=== PATIENT | female | born 2000 | race Caucasian/White ===

== ENCOUNTER 2020-10-13 10:56 | Outpatient (CLI) | payer MEDICAID, SELFPAY ==
[2020-10-13 11:15] VITALS: RESP 18
[2020-10-13 11:50] VITALS: BMI 21.9
--- NOTE | 2020-10-13 12:04 | PC.NURSE ---
Patient was placed on the monitor at 1119, patient has printed strip from [id number], due to patient not being in the system. Patient in system and strip stored at 1158.
[2020-10-13 12:15] VITALS: RESP 18
== END 2020-10-13 12:25 | disposition home or self-care (01) ==
LOC: OPOB 11:53 → OBGYN 11:56
PROVIDERS: Visit Provider Family Medicine
DX: O26.899 Other specified pregnancy related conditions, unspecified trimester (principal); Z3A.00 Weeks of gestation of pregnancy not specified; R10.9 Unspecified abdominal pain
CPT/HCPCS: 59025; 99211

== ENCOUNTER 2020-10-22 15:50 | Outpatient (CLI) | payer MEDICAID, SELFPAY ==
[2020-10-22 16:12] VITALS: BP 113/66; PULSE 136; TEMP 36.3
[2020-10-22 16:28] VITALS: BP 98/53; PULSE 122
[2020-10-22 16:29] VITALS: RESP 18
[2020-10-22 16:42] VITALS: BP 102/64; PULSE 112
[2020-10-22 16:48] LABS: Actim Prom Negative
[2020-10-22 16:57] VITALS: BP 100/61; PULSE 125
[2020-10-22 17:00] LABS: Amphetamines Screen Urine Negative (Negative); Barbiturates Screen Urine Negative (Negative); Benzodiazepines Screen Urine Negative (Negative); Cocaine Screen Urine Negative (Negative); Opiate Screen Urine Negative (Negative); PCP Screen Urine Negative (Negative); THC Screen Urine Negative (Negative)
[2020-10-22 17:29] VITALS: BMI 22.4
[2020-10-22 17:42] VITALS: BP 109/69; PULSE 112
== END 2020-10-22 18:25 | disposition home or self-care (01) ==
LOC: OPOB 15:56 → OBGYN 15:57
PROVIDERS: Visit Provider Obstetrics & Gynecology
DX: O26.899 Other specified pregnancy related conditions, unspecified trimester (principal); Z3A.00 Weeks of gestation of pregnancy not specified; N89.8 Other specified noninflammatory disorders of vagina
CPT/HCPCS: 59025; 80306; 83986; 84112; 99211

== ENCOUNTER 2020-10-27 13:35 | Outpatient (CLI) | payer MEDICAID, SELFPAY ==
[2020-10-27] VITALS (8 sets, daily range): BP systolic 102–123; BP diastolic 60–71; PULSE 101–116; RESP 17; TEMP 36.1; BMI 22.4
--- NOTE | 2020-10-27 14:40 | P.PCN_ITS ---
Procedure/Consent Procedure Narrative: NONSTRESS TEST: Place of test: [facility] [place]-L&D Indication: 19-year-old 2 para 1-0-0-1 at 38 weeks gestation, abdominal pain Date and time of test: 10/27/2020, 2 PM Baseline: 150 Variability: Moderate Accelerations: Present Decelerations: None Tocometry: Irritability-occasional contractions INTERPRETATION: NST reactive, continue kick counts
== END 2020-10-27 15:12 | disposition home or self-care (01) ==
LOC: OPOB 13:46 → OBGYN 13:50
PROVIDERS: Visit Provider Obstetrics & Gynecology
DX: O26.899 Other specified pregnancy related conditions, unspecified trimester (principal); Z3A.38 38 weeks gestation of pregnancy; R10.9 Unspecified abdominal pain
CPT/HCPCS: 59025; 99211

== ENCOUNTER 2020-10-30 12:17 | Outpatient (CLI) | payer MEDICAID, SELFPAY ==
[2020-10-30] VITALS (16 sets, daily range): BP systolic 117–155; BP diastolic 61–100; PULSE 103–127; RESP 16; TEMP 36.7; BMI 22.4
--- NOTE | 2020-10-30 14:11 | US_ITS ---
WS: [id number] BIOPHYSICAL PROFILE AMNIOTIC FLUID HISTORY: presentation COMPARISON: None available. Cardiac activity: 138 bpm. Cervix: closed. Placenta: Posterior without previa. Placenta grade: 3 Parameters are as follows: Breathin Movement: 2 Tone: 2 Fluid volume: 2 Amniotic fluid index: 10.9 cm which is between the fifth and 50th percentiles. Largest vertical pocke t 3.7 cm. US/US OB lmt w/ BPP wo NST IMPRESSION: 1. Biophysical profile score: 8/8. 2. Low normal amniotic fluid index. 3. Vertex presentation. 4. Posterior placenta, grade 3.
== END 2020-10-30 16:14 | disposition home or self-care (01) ==
LOC: OPOB 12:25 → OBGYN 16:03
PROVIDERS: Visit Provider Family Medicine
DX: O26.899 Other specified pregnancy related conditions, unspecified trimester (principal); Z3A.00 Weeks of gestation of pregnancy not specified; R10.9 Unspecified abdominal pain
CPT/HCPCS: 59025; 76815; 76819; 99211

== ENCOUNTER 2020-11-05 12:45 | Inpatient (IN) | payer MEDICAID, SELFPAY ==
[2020-10-30 13:41] VITALS: RESP 16; TEMP 36.7
[2020-11-05] VITALS (35 sets, daily range): BP systolic 105–129; BP diastolic 55–83; PULSE 88–133; RESP 16–18; TEMP 36.5–36.8; O2SAT 93–100; BMI 22.8
[2020-11-05 14:18] LABS: Basophils # 0.1 10^3/uL (0.0-0.1); Basophils % 0.5 %; Eosinophils # 0.1 10^3/uL (0.0-0.8); Eosinophils % 0.4 %; Hematocrit 29.6 % (37.0-47.0); Lymphocytes # 1.5 10^3/uL (0.8-4.8); Lymphocytes % 9.9 %; Mean Corpuscular HGB Conc 30.4 g/dL (30.0-36.0); Mean Corpuscular Hemoglobin 23.9 pg (28.0-34.0); Mean Corpuscular Volume 78.5 fL (81-99); Mean Platelet Volume 11.3 fL (7.4-10.4); Monocytes # 1.1 10^3/uL (0.2-0.9); Monocytes % 7.1 %; Neutrophils % 80.9 %; Nucleated Red Blood Cells % 0.2 %; Platelet Count 340 10^3/cmm (130-400); Red Blood Count 3.77 10^6/uL (4.1-5.3); Red Cell Distribution Width 17.4 % (12.1-15.1); White Blood Count 15.4 10^3/uL (4.0-10.0)
[2020-11-05] MEDS: dextrose 5%-lactated ringers 1,000 ML 125 ML IV (14:30)
[2020-11-05] MEDS: oxytocin 30 UNIT/500 ML BAG IV (14:31)
[2020-11-05] MEDS: lactated ringers 1,000 ML 999 ML IV ×2 (15:20→16:11)
--- NOTE | 2020-11-05 16:18 | ANES.PREANE2 ---
Pre-Anesthetic Assessment Pre-Anesthetic Assessment: Height/Weight: Height 1.7 m Weight 66.224 kg Temp Pulse Resp BP Pulse Ox 97.7 F 114 H 16 105/67 100 11/05/20 12:45 11/05/20 16:14 11/05/20 12:45 11/05/20 16:10 11/05/20 16:14 Was Beta Sherry taken within 24 hours: N/A Was Clonidine taken within 24 hours: N/A Social: Social History: No alcohol and No tobacco Exam: Pre-Anes Outpt Exam: alert and oriented x 3 History/ROS: No significant complaints Pulmonary: Pulmonary: None reported CV/HEM: CV/HEM: None reported : : None reported Hepatic: Hepatic: None reported GI: GI: None reported Metabolic: Metabolic: None reported Musc/skel: Musc/skel: None reported Neuropsych: Neuropsych: None reported Anesthetic Plan: ASA status: 1 Anesthesia: Regional (specify below) (Labor Epidural; risks and benefits disc including failure and permanent injuries. ) Meds/Allergies Current Medications: Current Medications Generic Name Dose Route Start Last Admin Trade Name Freq PRN Reason Stop Dose Admin Dextrose/Lactated Ringer's 1,000 mls @ 125 m ls/hr 11/05/20 13:15 11/05/20 14:30 Dextrose 5%-Lact ated Ringers IV 125 mls/hr .Q8H BERNA Administration Oxytocin 30 unit in 500 ml s @ 1 mls/hr 11/05/20 14:15 11/05/20 14:31 Pitocin IV 1 milliunit/min .Q24H BERNA 1 mls/hr Administration Protocol 1 MILLIUNIT/MIN Ropivacaine 200 mg in 100 mls @ 13 mls/hr 11/05/20 14:45 11/05/20 16:08 Naropin Premix EPIDURAL 13 mls/hr .Q7H42M BERNA Administration Lactated Ringer's 1,000 mls @ 999 m ls/hr 11/05/20 14:45 11/05/20 16:11 Lactated Ringers IV 999 mls/hr .Q1H1M PRN Administration See label comment s PFSH Anesthesia Female Reproductive History: : 3 Data Anesthesia CBC & Chem 7: 11/05/20 13:50 Other Labs: Laboratory Results - last 48 hr 11/05/20 13:50 WBC 15.4 H RBC 3.77 L Hgb 9.0 L Hct 29.6 L MCV 78.5 L MCH 23.9 L MCHC 30.4 RDW 17.4 H Plt Count 340 MPV 11.3 H Neut % (Auto) 80.9 Lymph % (Auto) 9.9 [place]isco[place] % (Auto) 7.1 Eos % (Auto) 0.4 Baso % (Auto) 0.5 Neut # (Auto) 12.50 H Lymph # (Auto) 1.5 [place] # (Auto) 1.1 H Eos # (Auto) 0.1 Baso # (Auto) 0.1 Nucleated RBC % (auto) 0.2 Nucleated RBCs # 0.0 Cardiac Studies: No Data to Display
--- NOTE | 2020-11-05 16:20 | ANES.PROC ---
Anesthesia Procedures Procedure/Date: 11/05/20 Epidural: Consents Signed: Procedure Consent Consent: requested by attending/covering physician, risks and benefits reviewed and patient agrees to proceed Lumbar Level: L4-L5 Epidural position: sitting Epidural procedure: sterile prep of area, 1% lidocaine to numb the area, neg for paresthesia, test dose given, 1.5% xylocaine 1:200k epi, no systemic response, sterile dressing applied and L.U.D. no apparent complications
--- NOTE | 2020-11-05 18:03 | P.PCNOB_ITS ---
Delivery Note: Date of delivery: November 05, 2020 Pre-delivery diagnoses: Term iup at 39 weeks Procedure: Op report anesthesia: Epidural Delivering Physician: Geno Estimated blood loss (mL): 50 Pre-Delivery Course: The patient is a 20 year old who was admitted at 39 weeks for induction at term. Her has been uncomplicated. Delivery: The patient had complete cervical dilation and began to push. The head delivered in the INGRID position over an intact perineum under epidural anesthesia. The nose and mouth were bulb suctioned. The shoulders and body delivered atraumatically. The baby was placed onto the mother's abdomen. The cord was clamped and cut. Cord blood was obtained. The placenta delivered spontaneously. It was inspected and found to be intact. Inspection of the perineum revealed no repair was required. There was a small, midline periurethral tear. Estimated blood loss 50. Apgars on baby were 8 at 1 minute and 8 at 5 minutes. Weight of baby is 7 pounds 1 ounce. Mother and baby were stable postdelivery. Coding Level of Care Code Acute Hotel Valet Attendant for Debbie Head
[2020-11-05] MEDS: lanolin oint 7 gm 1 APPLIC TOPICAL (21:07)
[2020-11-05] MEDS: ibuprofen 800 mg tablet PO (21:07)
[2020-11-05] MEDS: benzocaine-menthol 78 gm Canister 1 SPRAY TOPICAL (21:08)
--- NOTE | 2020-11-05 21:15 | PC.NURSE ---
RN assists patient via wheelchair to nursery at this time
--- NOTE | 2020-11-05 21:45 | PC.NURSE ---
Patient back to room and in bed.
[2020-11-06 01:46] VITALS: BP 106/57; PULSE 91; TEMP 36.4
--- NOTE | 2020-11-06 03:08 | PC.NURSE ---
Patient in nursery.
[2020-11-06 03:22] VITALS: BP 130/77; PULSE 110
[2020-11-06 06:34] LABS: Hematocrit 26.4 % (37.0-47.0); Hemoglobin 8.1 g/dL (11.5-15.3); Mean Corpuscular HGB Conc 30.7 g/dL (30.0-36.0); Mean Corpuscular Hemoglobin 23.9 pg (28.0-34.0); Mean Corpuscular Volume 77.9 fL (81-99); Mean Platelet Volume 10.2 fL (7.4-10.4); Platelet Count 285 10^3/cmm (130-400); Red Blood Count 3.39 10^6/uL (4.1-5.3); Red Cell Distribution Width 17.5 % (12.1-15.1); White Blood Count 17.8 10^3/uL (4.0-10.0)
[2020-11-06] MEDS: ibuprofen 800 mg tablet PO ×2 (10:25→21:51)
[2020-11-06] MEDS: docusate sodium 100 mg Capsule PO (10:25)
[2020-11-06] MEDS: prenatal vitamin Capsule 1 CAP PO (10:25)
[2020-11-06 10:34] VITALS: BP 111/74; PULSE 93; TEMP 36.4
--- NOTE | 2020-11-06 12:03 | P.PN_ITS ---
Subjective Subjective: Interval history: The patient is PP day #1. She is doing well. No complaints this morning. She is tolerating a regular diet, ambulating and pain is well controlled. lochia is normal Vitals/I&O/Wt Last Vital Signs Temp 97.5 F L 11/06/20 10:34 Pulse 93 11/06/20 10:34 Resp 18 11/05/20 18:22 BP 111/74 11/06/20 10:34 Pulse Ox 100 11/05/20 16:19 11/05/20 11/06/20 11/06/20 22:59 06:59 14:59 Intake Total 2588.500 / 2588.500 Output Total 1400 / 1400 400 / 1800 Balance 1188.500 / 1188.500 -400 / 788.500 Weight last 48 hrs Weight 146 lb Weight 146 lb Physical Exam Const: COMMON NORMALS: no acute distress, average body habitus, patient oriented x3, no limitations, healthy appearing, alert and well nourished GENERAL APPEARANCE: cooperative, comfortable, well kempt and well developed ORIENTATION/CONSCIOUSNESS: Yes awake, Yes oriented to person, Yes oriented to place and Yes oriented to time Resp: COMMON NORMALS: normal respiratory effort and No use of accessory muscles EFFORT & INSPECTION: Yes able to speak in complete sentences GI: COMMON NORMALS: Soft to palpation and non-tender PALPATION: Yes Soft to palpation Extremity: COMMON NORMALS: no clubbing, cyanosis or edema Neuro: COMMON NORMALS: patient oriented x3 SENSORIUM/ORIENTATION: Yes alert, Yes oriented to person, Yes oriented to place and Yes oriented to time Psych: APPEARANCE: Yes well kempt Data : 11/06/20 06:30 Attestations Medical Necessity Statement*: The patient is Coding Level of Care Code Acute Client Technical Professional for Debbie Head
[2020-11-06 19:30] VITALS: RESP 15
[2020-11-06 22:00] VITALS: BP 117/77; PULSE 88; TEMP 36.6
[2020-11-07] VITALS (7 sets, daily range): BP systolic 100–111; BP diastolic 57–82; PULSE 66–99; RESP 17; TEMP 36.2
[2020-11-07] MEDS: ibuprofen 800 mg tablet PO (08:34)
[2020-11-07] MEDS: prenatal vitamin Capsule 1 CAP PO (08:34)
[2020-11-07] MEDS: docusate sodium 100 mg Capsule PO (08:34)
--- NOTE | 2020-11-07 12:10 | P.DS_ITS ---
Discharge Providers ENTERPRISE SYSTEMS ENGINEER Date of Admission: 11/05/20 12:45 Date of Discharge: 11/07/20 Attending Provider at Admission: Devin Sood MD Attending Provider at Discharge: Alfredo Tmi MD Primary ENTERPRISE SYSTEMS ENGINEER: Dr. Anna Sparks Diagnoses at Discharge Discharge Diagnosis (1) Term delivered: Status: Acute (2) Anemia during , delivered, current hospitalization: Status: Acute Reason for Visit Reason for Visit: INDUCTION Hospital Course Hospital Course Patient is a 20-year-old female 3, para 2-0-0-2 with an LMP of 02/14/2020 and an EDC of 11/20/2020 based on LMP and consistent with a 15-week ultrasound, which placed her at 39-0/7 weeks at the time of admission on 11/05/2020. care had been provided by Dr. Anna Sparks at [facility]. care had been complicated by anemia in . Patient presented to L&D on 11/05/2020 at 12:45 for induction of labor for term . She was admitted by Dr. Sood. She was 60% effaced and 4 cm dilated. She was started on Pitocin for induction of labor. She had spontaneous rupture membranes at 14:33 and was still 70% effaced and 4 cm dilated. She was leonardo regularly at the time. She continued to contract and made rapid change thereafterwards and was found to be completely dilated by 17:23. She started pushing at 17:[address] Lora at 17:34 as a spontaneous vaginal delivery of a left occiput anterior female infant over an intact perineum under epidural anesthesia. The baby weighed 7 lbs 1 oz (3200 g) with a length of 19-1/2 inches and Apgars of 8 at 1 minute and 8 at 5 minutes. Day 1 Patient was reported doing well. She was tolerating a regular diet. She was ambulating well. Her pain was well controlled. Her bleeding had slowed. She was afebrile and vital signs were stable. Activities were increased. Blood count had dropped, but was not unexpected compared to initial blood count. She was down to 8.1 hemoglobin and was asymptomatic. Patient had been on iron prior to admission. Day 2 Patient denies complaints at this time. She is requesting to go home. She is tolerating a regular diet without nausea or vomiting. She is ambulating without lightheadedness or dizziness. She denied shortness of breath or chest pains. She reported her pain was well controlled. She denied problems with urination. She reports that her bleeding had slowed. She reports both breast and bottlefeeding at this time. Physical exam: See below Plan Patient is being discharged to home. She is to follow-up with Dr. Sparks for her exam. She was instructed to continue the vitamins and iron and is to use [id number] Tylenol and/or ibuprofen as needed for pain. Information Peripartum Data: Delivery Method: Vaginal Laceration description: Periurethral - 1st Degree Episiotomy description: None complications: none Additional Peripartum Information: Chronic iron deficiency anemia complicating . [place]: 1: Gender: Female Disposition of : home Additional Information: Viable female weighing 7 pounds 1 ounce (3200 g) with a length of 19-1/2 inches and Apgars of 8 at 1 minute and 8 at 5 minutes. Physical Exam Const: COMMON NORMALS: no acute distress, average body habitus, alert and well nourished GENERAL APPEARANCE: well developed ORIENTATION/CONSCIOUSNESS: Yes oriented to person, Yes oriented to place and Yes oriented to time Resp: COMMON NORMALS: normal respiratory effort and clear to auscultation bilaterally AUSCULTATION: clear to auscultation bilaterally Cardio: COMMON NORMALS: regular rate, regular rhythm, No gallops present (Cardio) and No rub (Cardio) RATE: regular rate RHYTHM: regular rhythm GI: COMMON NORMALS: Soft to palpation, non-tender, No hepatosplenomegaly present and no masses (Except for nontender uterus) AUSCULTATION: Yes normoactive bowel sounds PALPATION: Yes Soft to palpation, Yes No hepatosplenomegaly present and No Hernia present : EXTERNAL FEMALE EXAM: No Hernia present Extremity: COMMON NORMALS: no calf tenderness NARRATIVE EXTREMITY EXAM: Trace lower extremity edema bilaterally Neuro: SENSORIUM/ORIENTATION: Yes alert, Yes oriented to person, Yes oriented to place and Yes oriented to time Psych: COMMON NORMALS: normal affect MOOD & AFFECT: Yes euthymic mood Discharge Data Data Completed and Pendin11/05/2020 at 13: 50 CBC: WBC 15.4, hemoglobin 9.0, hematocrit 29.6, MCV 78.5, platelet 340,000 11/06/2020 at 6: 30 CBC: WBC 17.8, hemoglobin 8.1, hematocrit 26.4, MCV 77.9, platelet 285,000 Vitals: Last Vital Signs Temp 97.2 F L 11/07/20 09:38 Pulse 86 11/07/20 09:39 Resp 15 11/06/20 19:30 BP 100/67 11/07/20 09:39 Pulse Ox 100 11/05/20 16:19 Discharge Plan Discharge Patient Disposition: Home Condition: Stable Prescriptions: Continued Complete 1 cap PO DAILY RF: 0 iron 1 tab PO DAILY RF: 0 Discharge Orders: Discharge Order (Routine); Ordered 11/07/20 Ordered By: Alfredo Tim Referrals: Anna Sparks DO [Staff Physician] - 6 Weeks (Please call Dr. Sparks's office to schedule an appt. in 6 weeks for your check up.) Discharge Diet: Regular Discharge Activity: Limit activity as instructed Patient Instructions: Depression (GEN), Expression, Collection and Storage of Breastmilk (DC), How to Hold and Breastfeed Your Baby (DC), Breast Care for the Breast Feeding Mother (DC), Pre-eclampsia and Eclampsia (DC), OB Discharge Report, OB Food/Drug Interaction Guide, Opioid Safety, OB Proud Parent Packet, OB Vaginal Deliveries - [facility] Activity Restrictions/Additional Instructions: May use [id number] ibuprofen and/or acetaminophen as needed for pain. Discharge Attestations ENTERPRISE SYSTEMS ENGINEER Time Spent in Discharge Care*: less than 30 min Status at Discharge: Cognitive status at discharge: cognitively intact , Behavioral status at discharge: cooperative , Functional status at discharge: independent ambulation Overall status at discharge: patient is back to baseline Coding Level of Care Code Acute Railroad Dispatcher for Chg Fwd Diagnoses Term delivered O80 Anemia during , delivered, current hospitalization O99.02
== END 2020-11-07 12:55 | disposition home or self-care (01) | DRG 807 ==
PROVIDERS: Obstetrics & Gynecology; Admitting Provider Obstetrics & Gynecology; Visit Provider Obstetrics & Gynecology
DX: O80 Encounter for full-term uncomplicated delivery (principal); Z37.0 Single live birth; Z3A.39 39 weeks gestation of pregnancy
CPT/HCPCS: 36415; 51702; 59025; 59409; 85025; 85027; 98960; 99211; J2795

== ENCOUNTER → 2021-08-12 14:47 | Outpatient (BNVA) | payer MEDICAID, SELFPAY | PROVIDERS: PCP Nurse Practitioner Family; Visit Provider Obstetrics & Gynecology | DX: O99.891 Other specified diseases and conditions complicating pregnancy (principal); N89.8 Other specified noninflammatory disorders of vagina; Z3A.00 Weeks of gestation of pregnancy not specified | CPT/HCPCS: 80307; 81000; 84443; 85025; 86592; 86762; 86803; 86850; 86900; 87086; 87340; 87481; 87491; 87512; 87591; 87661; 87798; 87799; 87806; 88175 ==

== ENCOUNTER → 2021-09-13 15:10 | Outpatient (BNVA) | payer MEDICAID, SELFPAY | PROVIDERS: PCP Nurse Practitioner Family; Visit Provider Obstetrics & Gynecology | DX: O09.899 Supervision of other high risk pregnancies, unspecified trimester (principal); Z3A.00 Weeks of gestation of pregnancy not specified; Z87.59 Personal history of other complications of pregnancy, childbirth and the puerperium | CPT/HCPCS: 81000 ==

== ENCOUNTER → 2021-10-07 14:44 | Outpatient (BNVA) | payer MEDICAID, SELFPAY | PROVIDERS: PCP Nurse Practitioner Family; Visit Provider Obstetrics & Gynecology | DX: O09.899 Supervision of other high risk pregnancies, unspecified trimester (principal); Z3A.00 Weeks of gestation of pregnancy not specified; Z87.59 Personal history of other complications of pregnancy, childbirth and the puerperium | CPT/HCPCS: 81000; 87086 ==

== ENCOUNTER → 2021-11-08 12:07 | Outpatient (BNVA) | payer MEDICAID, SELFPAY | PROVIDERS: PCP Nurse Practitioner Family; Visit Provider Obstetrics & Gynecology | DX: O09.899 Supervision of other high risk pregnancies, unspecified trimester (principal); Z3A.00 Weeks of gestation of pregnancy not specified | CPT/HCPCS: 81000; 82950; 84443; 85025 ==

== ENCOUNTER → 2021-11-16 14:49 | Outpatient (BNVA) | payer MEDICAID, SELFPAY | PROVIDERS: PCP Nurse Practitioner Family; Visit Provider Internal Medicine | DX: O99.013 Anemia complicating pregnancy, third trimester (principal); D64.9 Anemia, unspecified; Z3A.00 Weeks of gestation of pregnancy not specified | CPT/HCPCS: 82607; 82746; 83550; 84443; 85045 ==

== ENCOUNTER → 2021-11-18 08:27 | Outpatient (BNVA) | payer MEDICAID, SELFPAY | PROVIDERS: PCP Nurse Practitioner Family; Visit Provider Obstetrics & Gynecology | DX: O09.899 Supervision of other high risk pregnancies, unspecified trimester (principal); Z3A.00 Weeks of gestation of pregnancy not specified | CPT/HCPCS: 81000; 82951; 82952 ==

== ENCOUNTER → 2021-11-30 10:50 | Day surgery (SDC) | payer MEDICAID, SELFPAY ==
[2021-11-30] MEDS: iron sucrose 200 MG in sodium chloride 0.9% (100 ml) 100 ML 220 MG IV (11:17)
[2021-11-30 11:30] VITALS: BP 108/61; PULSE 105; RESP 18; TEMP 36.4; O2SAT 100
== END ==
PROVIDERS: PCP Nurse Practitioner Family; Visit Provider Internal Medicine
DX: O99.013 Anemia complicating pregnancy, third trimester (principal); Z3A.00 Weeks of gestation of pregnancy not specified
CPT/HCPCS: 96365; J1756

== ENCOUNTER → 2021-12-02 11:32 | Outpatient (BNVA) | payer MEDICAID, SELFPAY | PROVIDERS: PCP Nurse Practitioner Family; Visit Provider Obstetrics & Gynecology | DX: Z34.90 Encounter for supervision of normal pregnancy, unspecified, unspecified trimester (principal) | CPT/HCPCS: 81000 ==

== ENCOUNTER → 2021-12-07 11:42 | Day surgery (SDC) | payer MEDICAID, SELFPAY ==
[2021-12-07 11:51] VITALS: BP 115/62; PULSE 94; RESP 18; TEMP 36.8; O2SAT 100
[2021-12-07] MEDS: iron sucrose 200 MG in sodium chloride 0.9% (100 ml) 100 ML 220 MG IV (11:56)
== END ==
PROVIDERS: PCP Nurse Practitioner Family; Visit Provider Internal Medicine
DX: O99.013 Anemia complicating pregnancy, third trimester (principal); Z3A.00 Weeks of gestation of pregnancy not specified
CPT/HCPCS: 96365; J1756

== ENCOUNTER → 2021-12-14 11:49 | Day surgery (SDC) | payer MEDICAID, SELFPAY ==
[2021-12-14] MEDS: iron sucrose 200 MG in sodium chloride 0.9% (100 ml) 100 ML 220 MG IV (12:07)
[2021-12-14 12:09] VITALS: BP 106/66; PULSE 109; RESP 16; TEMP 36.3; O2SAT 100; BMI 20.8
== END ==
PROVIDERS: PCP Nurse Practitioner Family; Visit Provider Internal Medicine
DX: O99.013 Anemia complicating pregnancy, third trimester (principal); Z3A.00 Weeks of gestation of pregnancy not specified
CPT/HCPCS: 81000; 96365; J1756

== ENCOUNTER 2021-12-21 13:15 | Outpatient (CLI) | payer MEDICAID, SELFPAY ==
[2021-12-21 13:15] VITALS: BMI 21.1
[2021-12-21 13:34] VITALS: BP 114/61; PULSE 100
[2021-12-21 13:35] VITALS: TEMP 36.1
[2021-12-21 13:54] VITALS: BP 108/67; PULSE 97
[2021-12-21 14:15] VITALS: BP 108/67; PULSE 97; RESP 18; TEMP 36.1
== END 2021-12-21 14:05 | disposition home or self-care (01) ==
LOC: OPOB 13:18 → OBGYN 13:20
PROVIDERS: PCP Nurse Practitioner Family; Visit Provider Obstetrics & Gynecology
DX: O21.9 Vomiting of pregnancy, unspecified (principal); Z3A.00 Weeks of gestation of pregnancy not specified; R10.9 Unspecified abdominal pain; M54.9 Dorsalgia, unspecified; N89.8 Other specified noninflammatory disorders of vagina
CPT/HCPCS: 59025; 99211

== ENCOUNTER 2021-12-26 15:00 | Outpatient (CLI) | payer MEDICAID, SELFPAY ==
[2021-12-26] VITALS (7 sets, daily range): BP systolic 107–117; BP diastolic 58–67; PULSE 95–109; TEMP 36.2; BMI 21.2
[2021-12-26 15:52] LABS: Actim Prom Negative
[2021-12-26 17:19] LABS: Urine Appearance SL Hazy (CLEAR); Urine Color Yellow (Yellow); pH Urine 7 (5-7)
[2021-12-26 17:20] LABS: Bilirubin Urine Neg (Negative); Blood Urine Neg (Negative); Glucose Urine UA Norm (Normal); Ketones Urine Negative (Negative); Leukocyte Esterase Urine 2+ (Negative); Nitrate Urine Negative (Negative); Protein Urine Neg (Negative); Urobilinogen Urine 4 mg/dL (Negative)
[2021-12-26 17:22] LABS: Add Urine Culture? No; Amorphous Sediment Urine 1+ /hpf; Bacteria Urine 1+ /hpf
== END 2021-12-26 16:58 | disposition home or self-care (01) ==
LOC: OPOB 15:01 → OBGYN 15:01
PROVIDERS: PCP Nurse Practitioner Family; Visit Provider Obstetrics & Gynecology
DX: O26.899 Other specified pregnancy related conditions, unspecified trimester (principal); Z3A.00 Weeks of gestation of pregnancy not specified; R10.9 Unspecified abdominal pain; N89.8 Other specified noninflammatory disorders of vagina
CPT/HCPCS: 59025; 81001; 84112; 99211

== ENCOUNTER → 2021-12-28 12:11 | Day surgery (SDC) | payer MEDICAID, SELFPAY ==
[2021-12-28] MEDS: iron sucrose 200 MG in sodium chloride 0.9% (100 ml) 100 ML 220 MG IV (12:25)
[2021-12-28 12:30] VITALS: BP 103/67; PULSE 100; RESP 18; TEMP 36.4; O2SAT 99
== END ==
PROVIDERS: PCP Nurse Practitioner Family; Visit Provider Internal Medicine
DX: O99.013 Anemia complicating pregnancy, third trimester (principal); Z3A.00 Weeks of gestation of pregnancy not specified
CPT/HCPCS: 96365; J1756

== ENCOUNTER → 2021-12-29 13:01 | Outpatient (BNVA) | payer MEDICAID, SELFPAY | PROVIDERS: PCP Nurse Practitioner Family; Visit Provider Obstetrics & Gynecology | DX: O09.899 Supervision of other high risk pregnancies, unspecified trimester (principal); Z3A.00 Weeks of gestation of pregnancy not specified | CPT/HCPCS: 81000; 87081 ==

== ENCOUNTER → 2022-01-04 11:46 | Day surgery (SDC) | payer MEDICAID, SELFPAY ==
[2022-01-04] MEDS: iron sucrose 200 MG in sodium chloride 0.9% (100 ml) 100 ML 220 MG IV (11:54)
[2022-01-04 11:56] VITALS: BP 102/72; PULSE 116; RESP 18; TEMP 36.3; O2SAT 100
== END ==
PROVIDERS: PCP Nurse Practitioner Family; Visit Provider Internal Medicine
DX: O99.013 Anemia complicating pregnancy, third trimester (principal); Z3A.00 Weeks of gestation of pregnancy not specified
CPT/HCPCS: 96365; J1756

== ENCOUNTER → 2022-01-05 14:46 | Outpatient (BNVA) | payer MEDICAID, SELFPAY | PROVIDERS: PCP Nurse Practitioner Family; Visit Provider Obstetrics & Gynecology | DX: O09.899 Supervision of other high risk pregnancies, unspecified trimester (principal); Z3A.00 Weeks of gestation of pregnancy not specified | CPT/HCPCS: 81000 ==

== ENCOUNTER 2022-01-08 15:15 | Outpatient (CLI) | payer MEDICAID, SELFPAY ==
[2022-01-08] VITALS (8 sets, daily range): BP systolic 117–130; BP diastolic 74–75; PULSE 96–125; RESP 16; TEMP 35.9–36.1; BMI 21.7
[2022-01-08 16:30] LABS: Urine Appearance Clear (CLEAR); Urine Color Yellow (Yellow)
[2022-01-08 16:31] LABS: Add Urine Culture? No; Bacteria Urine TRACE /hpf; Bilirubin Urine Neg (Negative); Blood Urine Neg (Negative); Glucose Urine UA Norm (Normal); Ketones Urine Negative (Negative); Leukocyte Esterase Urine Negative (Negative); Nitrate Urine Negative (Negative); Protein Urine Neg (Negative); Squamous Epithelial Cell Urine RARE /hpf (0-5); Urobilinogen Urine Norm (Negative); WBC Urine 0-4 /hpf (0-5); pH Urine 7 (5-7)
== END 2022-01-08 17:21 | disposition home or self-care (01) ==
LOC: OPOB 15:26 → OBGYN 15:27
PROVIDERS: PCP Nurse Practitioner Family; Visit Provider Obstetrics & Gynecology
DX: O26.899 Other specified pregnancy related conditions, unspecified trimester (principal); Z3A.00 Weeks of gestation of pregnancy not specified; R10.9 Unspecified abdominal pain
CPT/HCPCS: 59025; 81001; 99211

== ENCOUNTER 2022-01-13 19:00 | Inpatient (IN) | payer MEDICAID, SELFPAY ==
[2022-01-13] VITALS (85 sets, daily range): BP systolic 87–127; BP diastolic 50–90; PULSE 90–148; RESP 16–17; TEMP 35.8; O2SAT 98–100; BMI 21.9
[2022-01-13 18:31] LABS: Actim Prom Negative
--- NOTE | 2022-01-13 19:34 | W.PM.OPSUD ---
Surgery/Procedure H&P Update DATE OF PROCEDURE: January 13, 2022 DATE H&P PERFORMED: 01/05/22 H&P UPDATE INFORMATION: I have reviewed H&P completed within last 30 days, I have examined patient prior to procedure and Changes to prior documentation as noted here CHANGES TO PREVIOUS DOCUMENTATION: The patient presents for painful contractions at 38 4/7 weeks. Cervix 6/80/-2. She will be admitted for labor
--- NOTE | 2022-01-13 19:40 | W.PM.OPSUD ---
Surgery/Procedure H&P Update DATE OF PROCEDURE: January 13, 2022 DATE H&P PERFORMED: 01/05/22 Related Problem List Diagnoses (1) Anemia during in third trimester: (2) History of premature rupture of membranes (PPROM): (3) Supervision of other high-risk :
[2022-01-13 19:57] LABS: Basophils # 0.1 10^3/uL (0.0-0.1); Basophils % 0.7 %; Eosinophils # 0.1 10^3/uL (0.0-0.8); Eosinophils % 0.7 %; Hematocrit 36.7 % (37.0-47.0); Hemoglobin 11.5 g/dL (11.5-15.3); Lymphocytes # 2.1 10^3/uL (0.8-4.8); Lymphocytes % 18.2 %; Mean Corpuscular HGB Conc 31.3 g/dL (30.0-36.0); Mean Corpuscular Hemoglobin 26.5 pg (28.0-34.0); Mean Corpuscular Volume 84.6 fl (81-99); Mean Platelet Volume 10.5 fL (7.4-10.4); Monocytes # 0.7 10^3/uL (0.2-0.9); Monocytes % 5.8 %; Neutrophils # 8.46 10^3/uL (1.8-7.7); Neutrophils % 72.8 %; Nucleated Red Blood Cells % 0 %; Platelet Count 317 10^3/cmm (130-400); Red Blood Count 4.34 10^6/uL (4.1-5.3); Red Cell Distribution Width 25.9 % (12.1-15.1); White Blood Count 11.6 10^3/uL (4.0-10.0)
--- NOTE | 2022-01-13 21:08 | P.ANESASSM_ITS ---
Pre-Anesthetic Assessment Height/Weight: Height 1.7 m Weight 63.503 kg Temp Pulse Resp BP 96.4 F L 115 H 17 117/87 01/13/22 14:34 01/13/22 21:04 01/13/22 14:59 01/13/22 21:04 Preop Diagnosis: labor epidural Was Beta Sherry taken within 24 hours: N/A Was Clonidine taken within 24 hours: N/A Last Intake: 17:00 Social No alcohol and No tobacco Exam alert, oriented x 3, clear to auscultation bilaterally and regular rate & rhythm Airway Submandibular: within normal limits Cervical ROM: within normal limits Mallampati: Class I Dentition: full Pulmonary None reported CV/HEM None reported None reported Hepatic None reported GI Gastroesophageal Reflux Disease (with ) Metabolic None reported Musc/skel None reported Neuropsych None reported Anesthetic Plan ASA status: 2 Anesthesia: Regional (specify below) (epidural) Medications/Allergies Home Medications Medication Instructions Recorded Confirmed Last Taken Type ondansetron HCl 4 mg tablet 4 mg PO Q6H #30 tab 07/19/21 01/08/22 12/27/21 Rx (Zofran) vitamin B complex-vitamin C-folic 1 tab PO DAILY 09/13/21 01/08/22 12/27/21 History acid 5 mg tablet Allergies Allergy/AdvReac Type Severity Reaction Status Date / Time coconut Allergy ALGY-Swell Verified 01/05/22 14:37 Lip/Tongue/Throat Latex, Natural Rubber Allergy ALGY-Rash Verified 01/05/22 14:37 [facility] Anesthesia Medical History Anemia Surgical History No pertinent past surgical history Family History Mother Hypertension Hyperlipidemia Thyroid disease Hypothyroidism Denies family history of Diabetes CAD (coronary artery disease) Clotting disorder Chronic kidney disease (CKD) Bleeding disorder Cancer Stroke Female Reproductive History : 4 Spontaneous abortions: No Data Anesthesia : 01/13/22 19:40 Short CBC 01/13/22 Range/Units 19:40 WBC 11.6 H (4.0-10.0) 10^3/uL Hgb 11.5 (11.5-15.3) g/dL Hct 36.7 L (37.0-47.0) % MCV 84.6 (81-99) fl Plt Count 317 (130-400) 10^3/cmm Neut % (Auto) 72.8 % Neut # (Auto) 8.46 H (1.8-7.7) 10^3/uL Cardiac Studies: No Data to Display
[2022-01-13] MEDS: dextrose 5%-lactated ringers 1,000 ML 125 ML IV (21:37)
--- NOTE | 2022-01-13 21:39 | ANES.PROC ---
Anesthesia Procedures Procedure/Date: 01/13/22 Epidural: Time Out Performed: Yes Consents Signed: Procedure Consent and NPO Consent Consent: requested by attending/covering physician, from patient, risks and benefits reviewed and patient agrees to proceed Lumbar Level: L3-L4 Epidural position: sitting Epidural procedure: sterile prep of area (betadine), 1% lidocaine to numb the area (3ml), 18 g needle, negative for paresthesia passed, neg for paresthesia, test dose given, 1.5% xylocaine 1:200k epi (5ml), 0.2% Ropivacaine bolus ml (5ml), placed PCEA, no systemic response, sterile dressing applied, L.U.D. no apparent complications and 0.2% Ropiavacaine @ mls/hr (13ml/hr)
[2022-01-13] MEDS: ondansetron 2 mg/ML SDV 2 mL 4 MG IVP (23:05)
[2022-01-14] VITALS (58 sets, daily range): BP systolic 81–127; BP diastolic 48–75; PULSE 76–110; RESP 16–18; TEMP 35.9–37.1; O2SAT 97–100
--- NOTE | 2022-01-14 02:44 | PM.DELIVERY ---
Delivery Note: Date of delivery: January 14, 2022 Pre-delivery diagnoses: iup@38w3d, active labor, Post-delivery diagnoses: same, delivered Procedure: Delivering Physician: Geno Estimated blood loss (mL): 50 Findings: term female in the INGRID presentation with a double nuchal cord Pre-Delivery Course: The patient was admitted in active labor. She received an epidural at 6 cm dilation. She progressed to 7 cm dilation and had AROM of clear fluid. She progressed on to complete dilation and began pushing. Delivery: The patient had complete cervical dilation and began to push. The head delivered in the INGRID position over an intact perineum under epidural anesthesia. The nose and mouth were bulb suctioned. A double nuchal cord was reduced at the perineum. The shoulders and body delivered atraumatically. The baby was placed onto the mother's abdomen. The cord was clamped and cut. Cord blood was obtained. The placenta delivered spontaneously. It was inspected and found to be intact. Inspection of the perineum revealed no repair was required. Estimated blood loss 50 mL. Apgars on baby were 7 at 1 minute and 9 at 5 minutes. Weight of baby is 7 pounds. Mother and baby were stable post delivery. History History History 4 Term 1 Miscarriages/Ectopic 0 2 Living Children 3 Coding Level of Care Code Acute [place] Guide for Chg Sonido
[2022-01-14] MEDS: HYDROcodone-acetaminophen 5-325 mg Tablet PO ×2 (05:56→19:51)
--- NOTE | 2022-01-14 07:16 | ANE.PACU2 ---
Inpatient post-anesthesia follow up: Vital signs: Temperature 96.4 F Pulse Rate 94 Respiratory Rate 16 Blood Pressure 81/50 Pulse Oximetry 100 Oxygen Delivery Me thod Room Air Oxygen Flow Rate Fraction of Inspir ed Oxygen
[2022-01-14] MEDS: prenatal vitamin Capsule 1 CAP PO (08:16)
[2022-01-14] MEDS: docusate sodium 100 mg Capsule PO ×2 (08:17→19:51)
--- NOTE | 2022-01-14 09:00 | PC.NURSE ---
Pt ambulated to bathroom, large void. Airam care performed by pt. Gown and pad changed. Pt then ambulated to sit in chair. Bed linens changed.
--- NOTE | 2022-01-14 12:17 | ANE.PACU2 ---
Inpatient post-anesthesia follow up: Airway intact: Yes Vital signs: Temperature 96.6 F Pulse Rate 81 Respiratory Rate 16 Blood Pressure 92/58 Pulse Oximetry 99 Oxygen Delivery Me thod Room Air Oxygen Flow Rate Fraction of Inspir ed Oxygen Hydration adequate: Yes Nausea and vomiting: No Pain level: 1 Mental status: Baseline
[2022-01-14] MEDS: ibuprofen 800 mg tablet PO (14:09)
[2022-01-14 14:53] LABS: Hematocrit 35.1 % (37.0-47.0); Hemoglobin 11.2 g/dL (11.5-15.3); Mean Corpuscular HGB Conc 31.9 g/dL (30.0-36.0); Mean Corpuscular Hemoglobin 26.9 pg (28.0-34.0); Mean Corpuscular Volume 84.2 fl (81-99); Mean Platelet Volume 10.5 fL (7.4-10.4); Platelet Count 315 10^3/cmm (130-400); Red Blood Count 4.17 10^6/uL (4.1-5.3); Red Cell Distribution Width 25.6 % (12.1-15.1); White Blood Count 18.7 10^3/uL (4.0-10.0)
[2022-01-15 03:38] VITALS: BP 112/72; PULSE 73; RESP 14; TEMP 36.4; O2SAT 98
[2022-01-15] MEDS: acetaminophen 325 mg Tablet 650 MG PO (05:26)
[2022-01-15] MEDS: ibuprofen 800 mg tablet PO (09:20)
[2022-01-15] MEDS: docusate sodium 100 mg Capsule PO (09:20)
[2022-01-15] MEDS: prenatal vitamin Capsule 1 CAP PO (09:20)
[2022-01-15 09:22] VITALS: BP 101/62; PULSE 89; RESP 16; TEMP 36.7; O2SAT 98
--- NOTE | 2022-01-15 11:06 | PM.DCS ---
Discharge Providers Date of Admission: 01/13/22 19:00 Date of Discharge: January 15, 2022 Attending Provider at Admission: Ashleigh Lora MD Attending Provider at Discharge: Ashleigh Lora MD Primary Care Provider: Amina Valero Diagnoses at Discharge Discharge Diagnosis (1) Anemia during in third trimester: Status: Acute (2) History of premature rupture of membranes (PPROM): Status: Acute (3) Supervision of other high-risk : Status: Acute Reason for Visit Reason for Visit: back pain Hospital Course Hospital Course The patient was admitted in active labor. she had spontaneous delivery of a term . She did well and was ready for discharge on day #2 Physical Exam Narrative: The patient has no concerns today Const: COMMON NORMALS: no acute distress, average body habitus, patient oriented x3, no limitations, healthy appearing, alert and well nourished GENERAL APPEARANCE: cooperative, comfortable, well kempt and well developed ORIENTATION/CONSCIOUSNESS: Yes awake, Yes oriented to person, Yes oriented to place and Yes oriented to time Resp: COMMON NORMALS: normal respiratory effort EFFORT & INSPECTION: Yes able to speak in complete sentences GI: COMMON NORMALS: Soft to palpation and non-tender PALPATION: Yes Soft to palpation Extremity: COMMON NORMALS: normal to inspection Neuro: COMMON NORMALS: patient oriented x3 SENSORIUM/ORIENTATION: Yes alert, Yes oriented to person, Yes oriented to place and Yes oriented to time Psych: APPEARANCE: Yes well kempt Urinary Catheter Management: Mistry Latex Free: Cath Placed During This Visit: yes, but has since been removed by the nurse Reason for Continuing Indwelling Catheter: Decision to DC Catheter Urinary Catheter Date of Insertion: 01/13/22 Urinary Catheter Time of Insertion: 22:00 Date Urinary Catheter Removed: 01/14/22 Time Urinary Catheter Discontinued: 02:30 Discharge Data Studies Completed and Pending Laboratory Results WBC 18.7 10^3/uL (4.0-10.0) H 01/14/22 14:45 RBC 4.17 10^6/uL (4.1-5.3) 01/14/22 14:45 Hgb 11.2 g/dL (11.5-15.3) L 01/14/22 14:45 Hct 35.1 % (37.0-47.0) L 01/14/22 14:45 MCV 84.2 fl (81-99) 01/14/22 14:45 MCH 26.9 pg (28.0-34.0) L 01/14/22 14:45 MCHC 31.9 g/dL (30.0-36.0) 01/14/22 14:45 RDW 25.6 % (12.1-15.1) H 01/14/22 14:45 Plt Count 315 10^3/cmm (130-400) 01/14/22 14:45 MPV 10.5 fL (7.4-10.4) H 01/14/22 14:45 Neut % (Auto) 72.8 % 01/13/22 19:40 Lymph % (Auto) 18.2 % 01/13/22 19:40 Humphreys % (Auto) 5.8 % 01/13/22 19:40 Eos % (Auto) 0.7 % 01/13/22 19:40 Baso % (Auto) 0.7 % 01/13/22 19:40 Neut # (Auto) 8.46 10^3/uL (1.8-7.7) H 01/13/22 19:40 Lymph # (Auto) 2.1 10^3/uL (0.8-4.8) 01/13/22 19:40 Humphreys # (Auto) 0.7 10^3/uL (0.2-0.9) 01/13/22 19:40 Eos # (Auto) 0.1 10^3/uL (0.0-0.8) 01/13/22 19:40 Baso # (Auto) 0.1 10^3/uL (0.0-0.1) 01/13/22 19:40 Nucleated RBC % (auto) 0 % 01/13/22 19:40 Nucleated RBCs # 0.0 /100WBC 01/13/22 19:40 Insulin-like GF I Negative 01/13/22 17:42 Vitals Last Vital Signs Temp 98.0 F 01/15/22 09:22 Pulse 89 01/15/22 09:22 Resp 16 01/15/22 09:22 BP 101/62 01/15/22 09:22 Pulse Ox 98 01/15/22 09:22 Discharge Plan Discharge Patient Disposition: Home Condition: Stable Prescriptions: No Action B complex-vitamin C-folic acid 5 mg tablet 1 tab PO DAILY 0RF ondansetron HCl [Zofran] 4 mg tablet 4 mg PO Q6H Qty: 30 2RF Rx Instructions: Take one tablet every 6 hours Discharge Orders: Discharge Order (Routine); Ordered 01/15/22 Ordered By: Ashleigh Lora Patient Instructions: Depression (DC), Bleeding (DC), Preeclampsia and Eclampsia After Delivery (GEN), OB Discharge Report, OB Food/Drug Interaction Guide, OB Care at Home, Opioid Safety, OB Home Care, OB Vaginal Deliveries - [facility], Abnormal Bleeding Discharge Attestations Time Spent in Discharge Care*: less than 30 min Status at Discharge: Cognitive status at discharge: cognitively intact, Behavioral status at discharge: cooperative, Quality Metrics Clinical Quality Measures [ No reported AMI, CVA or VTE this stay] Coding Level of Care Code Acute Chg FW DC note Diagnoses Anemia during in third trimester O99.013 History of premature rupture of membranes (PPROM) Z87.59 Supervision of other high-risk O09.899
[2022-01-15 11:54] VITALS: BP 101/62; PULSE 89; RESP 16; TEMP 36.7; O2SAT 98
== END 2022-01-15 11:45 | disposition home or self-care (01) | DRG 807 ==
PROVIDERS: Admitting Provider Obstetrics & Gynecology; PCP Nurse Practitioner Family; Visit Provider Obstetrics & Gynecology
DX: O99.02 Anemia complicating childbirth (principal); Z37.0 Single live birth; D64.9 Anemia, unspecified; O99.62 Diseases of the digestive system complicating childbirth; K92.89 Other specified diseases of the digestive system; O69.81X0 Labor and delivery complicated by cord around neck, without compression, not applicable or unspecified; Z3A.38 38 weeks gestation of pregnancy; Z87.59 Personal history of other complications of pregnancy, childbirth and the puerperium
CPT/HCPCS: 36415; 51702; 59025; 59409; 84112; 85025; 85027; 99211; J2405; J2795

== ENCOUNTER → 2022-02-28 14:04 | Outpatient (BNVA) | payer MEDICAID, SELFPAY | PROVIDERS: PCP Nurse Practitioner Family; Visit Provider Obstetrics & Gynecology | DX: N92.0 Excessive and frequent menstruation with regular cycle (principal) | CPT/HCPCS: 84443 ==

== ENCOUNTER → 2022-03-10 15:48 | Outpatient (BNVA) | payer MEDICAID, SELFPAY | PROVIDERS: PCP Nurse Practitioner Family; Visit Provider Emergency Medicine | DX: S67.190A Crushing injury of right index finger, initial encounter (principal); W23.0XXA Caught, crushed, jammed, or pinched between moving objects, initial encounter | CPT/HCPCS: 73140 ==

== ENCOUNTER → 2023-09-14 08:07 | Outpatient (BNVA) | payer MEDICAID, SELFPAY | PROVIDERS: PCP Nurse Practitioner Family; Visit Provider Nurse Practitioner Women's Health | DX: N92.6 Irregular menstruation, unspecified (principal) | CPT/HCPCS: 81025 ==

== ENCOUNTER → 2023-10-04 13:13 | Outpatient (BNVA) | payer MEDICAID, SELFPAY | PROVIDERS: PCP Nurse Practitioner Family; Visit Provider Nurse Practitioner Women's Health | DX: Z34.91 Encounter for supervision of normal pregnancy, unspecified, first trimester; R82.90 Unspecified abnormal findings in urine | CPT/HCPCS: 76801; 81000; 87077; 87086; 87184 ==

== ENCOUNTER → 2023-10-20 07:48 | Outpatient (BNVA) | payer MEDICAID, SELFPAY | PROVIDERS: PCP Nurse Practitioner Family; Visit Provider Obstetrics & Gynecology | DX: Z34.80 Encounter for supervision of other normal pregnancy, unspecified trimester (principal) | CPT/HCPCS: 80307; 81000; 85025; 86592; 86762; 86803; 86850; 86900; 87077; 87086; 87184; 87340; 87491; 87591; 87806 ==

== ENCOUNTER → 2023-11-03 14:13 | Outpatient (BNVA) | payer MEDICAID, SELFPAY | PROVIDERS: PCP Nurse Practitioner Family; Visit Provider Obstetrics & Gynecology | DX: Z34.80 Encounter for supervision of other normal pregnancy, unspecified trimester (principal); R82.71 Bacteriuria | CPT/HCPCS: 81000; 87077; 87086; 87184; 87491; 87591 ==

== ENCOUNTER → 2023-11-14 15:36 | Outpatient (BNVA) | payer MEDICAID, SELFPAY | PROVIDERS: PCP Nurse Practitioner Family; Visit Provider Nurse Practitioner Women's Health | DX: Z36.9 Encounter for antenatal screening, unspecified (principal) | CPT/HCPCS: 76815 ==

== ENCOUNTER → 2023-11-29 08:04 | Outpatient (BNVA) | payer MEDICAID, SELFPAY | PROVIDERS: PCP Nurse Practitioner Family; Visit Provider Nurse Practitioner Women's Health | DX: Z34.80 Encounter for supervision of other normal pregnancy, unspecified trimester (principal) | CPT/HCPCS: 81000; 82105; 87077; 87086; 87184 ==

== ENCOUNTER → 2023-12-26 14:19 | Outpatient (BNVA) | payer MEDICAID, SELFPAY | PROVIDERS: PCP Nurse Practitioner Family; Visit Provider Obstetrics & Gynecology | DX: Z36.9 Encounter for antenatal screening, unspecified (principal) | CPT/HCPCS: 76805 ==

== ENCOUNTER → 2024-01-01 08:13 | Outpatient (BNVA) | payer MEDICAID, SELFPAY | PROVIDERS: PCP Nurse Practitioner Family; Visit Provider Obstetrics & Gynecology | DX: Z34.80 Encounter for supervision of other normal pregnancy, unspecified trimester (principal); R82.71 Bacteriuria | CPT/HCPCS: 81000 ==

== ENCOUNTER → 2024-01-23 15:08 | Outpatient (BNVA) | payer MEDICAID, SELFPAY | PROVIDERS: PCP Nurse Practitioner Family; Visit Provider Obstetrics & Gynecology | DX: Z36.9 Encounter for antenatal screening, unspecified (principal) | CPT/HCPCS: 76816 ==

== ENCOUNTER → 2024-01-24 09:59 | Outpatient (BNVA) | payer MEDICAID, SELFPAY | PROVIDERS: PCP Nurse Practitioner Family; Visit Provider Nurse Practitioner Women's Health | DX: Z34.80 Encounter for supervision of other normal pregnancy, unspecified trimester (principal) | CPT/HCPCS: 82950; 84315; 87086 ==

== ENCOUNTER → 2024-01-31 08:24 | Outpatient (BNVA) | payer MEDICAID, SELFPAY | PROVIDERS: PCP Nurse Practitioner Family; Visit Provider Nurse Practitioner Women's Health | DX: Z34.80 Encounter for supervision of other normal pregnancy, unspecified trimester (principal) | CPT/HCPCS: 82951; 82952 ==

== ENCOUNTER → 2024-02-22 08:36 | Outpatient (BNVA) | payer MEDICAID, SELFPAY | PROVIDERS: PCP Nurse Practitioner Family; Visit Provider Obstetrics & Gynecology | DX: Z36.9 Encounter for antenatal screening, unspecified (principal) | CPT/HCPCS: 76816; 81000; 87077; 87086; 87184 ==

== ENCOUNTER → 2024-03-04 15:05 | Outpatient (BNVA) | payer MEDICAID, SELFPAY | PROVIDERS: PCP Nurse Practitioner Family; Visit Provider Obstetrics & Gynecology | DX: Z34.80 Encounter for supervision of other normal pregnancy, unspecified trimester (principal) | CPT/HCPCS: 81000; 85025 ==

== ENCOUNTER → 2024-03-18 14:54 | Outpatient (BNVA) | payer MEDICAID, SELFPAY | PROVIDERS: PCP Nurse Practitioner Family; Visit Provider Obstetrics & Gynecology | DX: Z34.80 Encounter for supervision of other normal pregnancy, unspecified trimester (principal); Z36.9 Encounter for antenatal screening, unspecified | CPT/HCPCS: 76816; 76819; 81000 ==

== ENCOUNTER → 2024-04-02 11:51 | Outpatient (BNVA) | payer MEDICAID, SELFPAY | PROVIDERS: PCP Nurse Practitioner Family; Visit Provider Nurse Practitioner Women's Health | DX: Z34.80 Encounter for supervision of other normal pregnancy, unspecified trimester (principal) | CPT/HCPCS: 84315; 85025 ==

== ENCOUNTER → 2024-04-04 12:26 | Outpatient (BNVA) | payer MEDICAID, SELFPAY | PROVIDERS: PCP Nurse Practitioner Family; Visit Provider Obstetrics & Gynecology | DX: O24.419 Gestational diabetes mellitus in pregnancy, unspecified control (principal) | CPT/HCPCS: 76819 ==

== ENCOUNTER 2024-04-07 14:19 | Outpatient (CLI) | payer MEDICAID, SELFPAY ==
[2024-04-07] VITALS (9 sets, daily range): BP systolic 106–119; BP diastolic 69–80; PULSE 108–125; BMI 25.7
[2024-04-07 15:22] LABS: Bilirubin Urine Neg (Negative); Blood Urine Neg (Negative); Glucose Urine UA Trace (Normal); Ketones Urine Negative (Negative); Leukocyte Esterase Urine 1+ (Negative); Nitrate Urine Negative (Negative); Protein Urine Trace (Negative); Specific Gravity, Urine 1.015 (1.005-1.030); Urine Appearance Clear (CLEAR); Urine Color Yellow (Yellow); Urobilinogen Urine Norm (Negative); pH Urine 6.5 (5-7)
[2024-04-07 15:23] LABS: Add Urine Culture? No; Bacteria Urine 1+ /hpf
[2024-04-07 15:38] LABS: Glucose Point of Care 108 mg/dL (70-110)
[2024-04-07] MEDS: ceFAZolin 2,000 mg SDV 2000 MG IVP (16:07)
[2024-04-07] MEDS: lactated ringers 1,000 ML 999 ML IV (16:11)
== END 2024-04-07 16:39 | disposition home or self-care (01) ==
LOC: OPOB 14:20 → OBGYN 14:42
PROVIDERS: Absent Provider Obstetrics & Gynecology; PCP Nurse Practitioner Family; Visit Provider Obstetrics & Gynecology
DX: O21.9 Vomiting of pregnancy, unspecified (principal); Z3A.00 Weeks of gestation of pregnancy not specified; M54.50 Low back pain, unspecified; R51.9 Headache, unspecified
CPT/HCPCS: 36416; 59025; 81001; 82962; 99211; J0690; J7120

== ENCOUNTER 2024-04-11 16:00 | Outpatient (CLI) | payer MEDICAID, SELFPAY ==
[2024-04-11 16:15] VITALS: BMI 25.2
[2024-04-11 16:26] VITALS: BP 129/80; PULSE 123; TEMP 35.8
[2024-04-11 16:41] VITALS: BP 114/64; PULSE 109
[2024-04-11 16:56] VITALS: BP 114/65; PULSE 112
[2024-04-11 17:11] VITALS: BP 105/67; PULSE 109
--- NOTE | 2024-04-11 17:21 | USR_ITS ---
PROCEDURE INFORMATION: Exam: US , Limited Exam date and time: 04/11/2024 5:39 PM Age: 23 years old Clinical indication: Lmp or gestational age (in weeks): 34w; Other: Bleeding; ; Additional info: Ultrasound for placental placement LABS AND CLINICAL REPORTS: Gestational age (Established): 34 w 5 d Estimated due date (Established): 05/18/2024 TECHNIQUE: Imaging protocol: Real-time ultrasound of the maternal uterus with image documentation. Exam focused on the clinical indication. COMPARISON: US OB BPP NST [id number] 04/04/2024 12:31 PM FINDINGS: Gestation: Single live intrauterine gestation in the cephalic/vertex presentation. Established gestational age 34 weeks 5 days. heart rate: 131 bpm Placenta: Anterior fundal and appears unremarkable. No findings to indicate previa or abruption. Amniotic fluid index: SUSANNAH is 11.91 cm. Deepest pocket measures 4.5 cm. MATERNAL: Cervix: Cervical length measures 3.5 cm. Appears closed. US/US OB limited [id number] IMPRESSION: 1. Single live intrauterine gestation 34 weeks 5 days established gestational age in the cephalic/vertex presentation and with good heart tones (131 bpm). 2. Anterior fundal placenta which appears within normal limits. 3. SUSANNAH 11.91.
[2024-04-11 17:26] VITALS: BP 108/70; PULSE 110
[2024-04-11 18:00] VITALS: BP 108/70; PULSE 110; RESP 16
== END 2024-04-11 18:01 | disposition home or self-care (01) ==
LOC: OPOB 16:13 → OBGYN 16:14
PROVIDERS: PCP Nurse Practitioner Family; Visit Provider Obstetrics & Gynecology
DX: O46.90 Antepartum hemorrhage, unspecified, unspecified trimester (principal); Z3A.00 Weeks of gestation of pregnancy not specified
CPT/HCPCS: 59025; 76815; 99211

== ENCOUNTER → 2024-04-16 13:16 | Outpatient (BNVA) | payer MEDICAID, SELFPAY | PROVIDERS: PCP Nurse Practitioner Family; Visit Provider Nurse Practitioner Women's Health | DX: O09.93 Supervision of high risk pregnancy, unspecified, third trimester (principal); O99.019 Anemia complicating pregnancy, unspecified trimester | CPT/HCPCS: 76815; 76819; 81000; 85025; 87081 ==

== ENCOUNTER 2024-04-17 20:26 | Outpatient (CLI) | payer MEDICAID, SELFPAY ==
[2024-04-17 20:26] VITALS: BMI 25.3
[2024-04-17 20:56] VITALS: BP 118/69; PULSE 101
[2024-04-17 21:10] VITALS: BP 116/68; PULSE 99
[2024-04-17 22:30] VITALS: BP 116/80; PULSE 100
[2024-04-17 22:40] VITALS: BP 116/80; PULSE 100; RESP 16
== END 2024-04-17 22:51 | disposition home or self-care (01) ==
LOC: OPOB 20:30 → OBGYN 20:30
PROVIDERS: PCP Nurse Practitioner Family; Visit Provider Obstetrics & Gynecology
DX: O26.899 Other specified pregnancy related conditions, unspecified trimester (principal); Z3A.00 Weeks of gestation of pregnancy not specified; N89.8 Other specified noninflammatory disorders of vagina
CPT/HCPCS: 59025; 83986; 99211

== ENCOUNTER 2024-04-19 11:50 | Outpatient (CLI) | payer MEDICAID, SELFPAY ==
[2024-04-19 11:55] VITALS: BMI 25.2
[2024-04-19 12:03] VITALS: BP 115/65; PULSE 113
[2024-04-19 12:23] VITALS: BP 119/76; PULSE 122
[2024-04-19 12:43] VITALS: BP 109/70; PULSE 100
[2024-04-19 13:03] VITALS: BP 112/72; PULSE 102
[2024-04-19 13:22] VITALS: BP 112/72; PULSE 102; RESP 16
== END 2024-04-19 13:23 | disposition home or self-care (01) ==
LOC: OPOB 11:52 → OBGYN 11:53
PROVIDERS: PCP Nurse Practitioner Family; Visit Provider Obstetrics & Gynecology
DX: O36.8190 Decreased fetal movements, unspecified trimester, not applicable or unspecified (principal); O46.90 Antepartum hemorrhage, unspecified, unspecified trimester; Z3A.00 Weeks of gestation of pregnancy not specified
CPT/HCPCS: 59025; 99211

== ENCOUNTER → 2024-04-23 12:51 | Outpatient (BNVA) | payer MEDICAID, SELFPAY | PROVIDERS: PCP Nurse Practitioner Family; Visit Provider Obstetrics & Gynecology | DX: O09.93 Supervision of high risk pregnancy, unspecified, third trimester (principal) | CPT/HCPCS: 76819; 81000 ==

== ENCOUNTER 2024-04-28 14:02 | Inpatient (IN) | payer MEDICAID, SELFPAY ==
[2024-04-28] VITALS (49 sets, daily range): BP systolic 97–135; BP diastolic 55–83; PULSE 86–119; RESP 18; TEMP 36.4–37; O2SAT 81–100; BMI 24.7
[2024-04-28 13:07] LABS: Actim Prom Positive
[2024-04-28 14:04] LABS: Nitrazine Paper, PH Positive
[2024-04-28 14:07] LABS: Basophils % 0.3 %; Eosinophils % 0.3 %; Hematocrit 31.4 % (36-47); Lymphocytes # 1.7 10^3/uL (0.8-4.8); Lymphocytes % 14.2 %; Mean Corpuscular HGB Conc 31.5 g/dL (30-55); Mean Corpuscular Hemoglobin 28.2 pg (27-33); Mean Corpuscular Volume 89.5 fl (85-98); Mean Platelet Volume 10.1 fL (7.4-10.4); Monocytes # 0.7 10^3/uL (0.2-0.9); Monocytes % 5.8 %; Neutrophils % 78.6 %; Nucleated Red Blood Cells % 0 %; Platelet Count 300 10^3/cmm (157-399); Red Blood Count 3.51 10^6/uL (3.85-5.65); Red Cell Distribution Width 16.7 % (12.1-15.1); White Blood Count 11.98 10^3/uL (3.29-11.43)
--- NOTE | 2024-04-28 15:05 | PM.OBGYHP ---
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 Sood Primary Care Provider: Amina Valero Chief Complaint: POSS ROM HPI FASTENER SEWING MACHINE OPERATOR History of Present Illness Eulalia Aguero is a 23 year old female aat 38.1 wk gestation with KARLIE 05/11/2024. Patient was admitted to labor and delivery after confirmation of spontaneous rupture of membranes by active PROM and nitrazine, which were both positive. Patient states she experienced leakage of fluid last night approximately 7:30 PM. She denies any bleeding or painful uterine contractions. Patient states she is gestational diabetic controlled by her diet and has required no medications. After observation with external monitoring for now her, I discussed with the patient induction of labor with Pitocin, to start contractions and increased their frequency and intensity. Patient understands states she had Pitocin with her other deliveries as well. I discussed the possibility of nonreassuring monitoring which if indicated would result in section delivery for as well as maternal wellbeing. Patient understands. EFM?category 1 Cervix?4 cm / 75%/-2 vertex presentation with clear fluid noted by nursing staff. Present Details : 6 Para: 1 Labs Rubella: Immune RPR: Negative GBS: Negative Review of Systems General: Reports: 10 or more systems reviewed and unremarkable except in HPI and below Medications/Allergies Home Medications Medication Instructions Recorded Confirmed Last Taken Type blood-glucose meter (Blood Glucose #1 ea 02/01/24 04/23/24 Unknown Rx Monitoring kit) insulin human U-100 NPH-regulr 14 unit (0.14 mL) SUBCUT QAM #10 mL 02/07/24 04/23/24 04/16/24 Rx 70-30 mix 100 unit/mL subcutaneous susp insulin syringe-needle U-100 0.3 #100 ea 02/08/24 04/23/24 Unknown Rx mL 29 gauge x 1/2 (BD Insulin Syringe) cephalexin 500 mg capsule 500 mg PO DAILY #90 caps 04/02/24 04/23/24 04/16/24 Rx ferrous sulfate 325 mg (65 mg 325 mg PO BID #60 tabs 04/03/24 04/23/24 04/16/24 Rx iron) tablet Allergies Allergy/AdvReac Type Severity Reaction Status Date / Time coconut Allergy ABELARDO-Swell Verified 04/23/24 13:05 Lip/Tongue/Throat Latex, Natural Rubber Allergy ALGY-Rash Verified 04/23/24 13:05 PFSH FASTENER SEWING MACHINE OPERATOR PFSH: Medical History No pertinent past medical history neghx: htn,dm,thyroid,dv/pe PCP: Amina Valero Surgical History No pertinent past surgical history Family History Mother Hypertension Hyperlipidemia Thyroid disease Hypothyroidism Denies family history of Diabetes CAD (coronary artery disease) Clotting disorder Chronic kidney disease (CKD) Bleeding disorder Cancer Stroke Social History Smoking and tobacco/nicotine status: never used tobacco/nicotine Other Female Reproductive History: Hx Age of Menarche: 14 Duration of menses: 8-10 days Date of Last Menstrual Period: 08/05/23 Cycle Length: 28 d Menstrual flow: normal/abnormal: normal Sexual History: Are you sexually active?: Yes How old were you when you first had sex?: 15 How many partners have you had?: 5 How long have you been with your current partner?: 2017 What is your sexual preference?: Heterosexual Have you ever tested positive for HIV?: No Contraception: Contraception History Comment: hx of OCP 2021 Personal Safety: Do you feel safe at home: Yes Victim of physical abuse: No Victim of emotional abuse: No Victim of sexual abuse: No Would you like help information on resources?: No History History History 6 Term 3 1 Miscarriages/Ectopic 1 Living Children 4 Care KARLIE Calculator Estimated Delivery Date Method Current WG Current Estimate 05/11/24 LMP (Certain) 38w 1d Specific Issues/Plans GDM at 25 weeks- diet controlled HX PTL with delivery at 36 weeks (first ) UTI at 8wks; rx Keflex DEPRESSION IUGR Vitals/I&O/Wt Last Vital Signs Temp 98.6 F 04/28/24 12:30 Pulse 117 H 04/28/24 14:49 Resp 18 04/28/24 12:30 BP 117/74 04/28/24 14:49 O2 Del Method Room Air 04/28/24 12:19 Weight last 48 hrs Weight 71.668 kg Physical Exam Narrative: 23-year-old female alert and orient x 3 in no acute distress. HENMT: OTHER: Mouth?poor dentition Resp: COMMON NORMALS: normal respiratory effort and clear to auscultation bilaterally Cardio: COMMON NORMALS: regular rate, regular rhythm and No murmurs present (Cardio) Back/Pelvis: OTHER: Abdomen?soft, gravid, nontender to palpation Extremity: COMMON NORMALS: no clubbing, cyanosis or edema, no calf tenderness and no pedal edema Data 04/28/24 13:44 Results Labs OB ([facility]): Obstetrics US 04/11/24 Obstetrics US/Biophysical Profile 04/23/24 Blood Type O Positive 04/28/24 Antibody Screen Negative 04/28/24 Hct 31.4 % (36-47) L 04/28/24 Hgb 9.90 g/dL (11.27-16.99) L 04/28/24 Rho(D) Type Rh positive 04/28/24 Plt Count 300 10^3/cmm (157-399) 04/28/24 Hep Bs Antigen Non-reactive (Nonreactive) 10/20/23 Hepatitis C Antibody Non-reactive (Nonreactive) 10/20/23 Rubella IgG Antibody 121.1 IU/mL (0.0-10.0) H 10/20/23 RPR Nonreactive (Nonreactive) 10/20/23 HIV 1&2 Ab & HIV 1 Ag Non-reactive (Non-Reactiv) 10/20/23 C.trachomatis RNA (TMA) Not detected (NOT DETECTED) 11/03/23 N.gonorrhoeae RNA (TMA) Not detected (NOT DETECTED) 11/03/23 T. vaginalis Amp RNA Not detected (NOT DETECTED) 11/03/23 Chlamydia/GC Comment See note 11/03/23 Gest Glucose Tolerance mg/dL 01/31/24 HCG, Qual Positive (Negative) H 09/14/23 Urine Opiates Screen Negative ng/mL (Negative) 10/20/23 Ur Barbiturates Screen Negative ng/mL (Negative) 10/20/23 Ur Phencyclidine Scrn Negative ng/mL (Negative) 10/20/23 Ur Amphetamines Screen Negative ng/mL (Negative) 10/20/23 U Benzodiazepines Scrn Negative ng/mL (Negative) 10/20/23 Urine Cocaine Screen Negative ng/mL (Negative) 10/20/23 U Marijuana (THC) Screen Negative ng/mL (Negative) 10/20/23 Micro Urine Specimen 02/22/24 A&P Assessment and plan (1) 38 weeks gestation of : P. Admit to labor and delivery. Induction of labor with Pitocin (2) SROM (spontaneous rupture of membranes): (3) Anemia affecting : Qualifiers: Trimester: third trimester Qualified Code(s): O99.013 - Anemia complicating , third trimester (4) Supervision of high risk , unspecified, third trimester: (5) Migraine without aura: (6) Gestational diabetes: Qualifiers: Gestational diabetes mellitus control: unspecified Trimester: second trimester Qualified Code(s): O24.419 - Gestational diabetes mellitus in , unspecified control (7) IUGR (intrauterine growth restriction) affecting care of mother: Qualifiers: Fetus number: single or unspecified fetus Trimester: second trimester Qualified Code(s): O36.5920 - Maternal care for other known or suspected poor growth, second trimester, not applicable or unspecified (8) UTI in , antepartum: (9) History of delivery, currently : Attestations Medical Necessity Statement*: Admission of patient to labor and delivery for management of labor and delivery Coding Level of Care Code Acute Code for Chg Fwd Diagnoses 38 weeks gestation of Z3A.38 SROM (spontaneous rupture of membranes) Anemia affecting in third trimester O99.013 Trimester: third trimester Supervision of high risk , unspecified, third trimester O09.93 Migraine without aura G43.009 Gestational diabetes mellitus (GDM) in second trimester, gestational diabetes method of control unspecified O24.419 Gestational diabetes mellitus control: unspecified Trimester: second trimester Poor growth affecting management of mother in second trimester, single or unspecified fetus O36.5920 Fetus number: single or unspecified fetus Trimester: second trimester UTI in , antepartum O23.40 History of delivery, currently O09.899
[2024-04-28] MEDS: oxytocin 30 UNIT/500 ML BAG IV (15:15)
[2024-04-28] MEDS: dextrose 5%-lactated ringers 1,000 ML 125 ML IV (15:17)
[2024-04-28] MEDS: ondansetron 2 mg/ML SDV 2 mL 4 MG IVP (18:18)
[2024-04-28] MEDS: lactated ringers 1,000 ML 999 ML IV (18:18)
--- NOTE | 2024-04-28 19:20 | P.ANESASSM_ITS ---
Pre-Anesthetic Assessment Height/Weight: Height 1.7 m Weight 71.668 kg Temp Pulse Resp BP Pulse Ox O2 Del Method 97.5 F L 92 18 118/72 100 Room Air 04/28/24 16:30 04/28/24 19:35 04/28/24 12:30 04/28/24 19:35 04/28/24 19:35 04/28/24 12:19 Preop Diagnosis: labor pain epidural Familial anesthetic complications: none Was Beta Sherry taken within 24 hours: N/A Was Clonidine taken within 24 hours: N/A Last intake: 04/27 Social No alcohol and No tobacco Exam alert and oriented x 3 Airway Submandibular: within normal limits Cervical ROM: within normal limits Mallampati: Class I Dentition: full History/ROS No significant complaints CV/HEM Anemia (previous iron infusions, none during this ) Metabolic Diabetes Mellitus (gestational) Anesthetic Plan ASA status: 2 Anesthesia: Anesthesia Evaluation and Regional (specify below) Medications/Allergies Home Medications Medication Instructions Recorded Confirmed Last Taken Type blood-glucose meter (Blood Glucose #1 ea 02/01/24 04/23/24 Unknown Rx Monitoring kit) insulin syringe-needle U-100 0.3 #100 ea 02/08/24 04/23/24 Unknown Rx mL 29 gauge x 1/2 (BD Insulin Syringe) cephalexin 500 mg capsule 500 mg PO DAILY #90 caps 04/02/24 04/28/24 04/27/24 Rx ferrous sulfate 325 mg (65 mg 325 mg PO BID #60 tabs 04/03/24 04/28/24 04/27/24 Rx iron) tablet Allergies Allergy/AdvReac Type Severity Reaction Status Date / Time coconut Allergy ALGY-Swell Verified 04/28/24 15:34 Lip/Tongue/Throat Latex, Natural Rubber Allergy ALGY-Rash Verified 04/28/24 15:34 Current Medications Generic Name Dose Route Start Last Admin Trade Name Freq PRN Reason Stop Dose Admin Dextrose/Lactated Ringer's 1,000 mls @ 125 mls/hr 04/28/24 14:00 04/28/24 18:18 Dextrose 5%-Lactated Ringers IV 0 mls/hr .Q8H BERNA Infusion Oxytocin 30 unit in 500 mls @ 1 mls/hr 04/28/24 15:00 04/28/24 17:45 Pitocin IV 12 milliunit/min .Q24H BERNA 12 mls/hr Titration Protocol 1 MILLIUNIT/MIN Lactated Ringer's 1,000 mls @ 999 mls/hr 04/28/24 18:13 04/28/24 18:18 Lactated Ringers IV 999 mls/hr .Q1H1M PRN Administration See label comments Ondansetron HCl 4 mg 04/28/24 13:53 04/28/24 18:18 Ondansetron 2 Mg/Ml Sdv 2 Ml IVP 4 mg Q4H PRN Administration NAUSEA AND VOMITING PFSH Anesthesia Medical History No pertinent past medical history neghx: htn,dm,thyroid,dv/pe PCP: Amina Valero Surgical History No pertinent past surgical history Family History Mother Hypertension Hyperlipidemia Thyroid disease Hypothyroidism Denies family history of Diabetes CAD (coronary artery disease) Clotting disorder Chronic kidney disease (CKD) Bleeding disorder Cancer Stroke Social History Smoking and tobacco/nicotine status: never used tobacco/nicotine Female Reproductive History : 6 Spontaneous abortions: No Data Anesthesia 04/28/24 13:44 Short CBC 04/28/24 Range/Units 13:44 WBC 11.98 H (3.29-11.43) 10^3/uL Hgb 9.90 L (11.27-16.99) g/dL Hct 31.4 L (36-47) % MCV 89.5 (85-98) fl Plt Count 300 (157-399) 10^3/cmm Neut % (Auto) 78.6 % Neut # (Auto) 9.40 H (1.8-7.7) 10^3/uL Blood Bank 04/28/24 13:44 Blood Type O Positive Rho(D) Type Rh positive Antibody Screen Negative Cardiac Studies: 2 No Data to Display
[2024-04-28] MEDS: ROPivacaine syringe 100 MG/50 ML SYRINGE 13 MG EPIDURAL (19:36)
--- NOTE | 2024-04-28 19:37 | ANES.PROC ---
Anesthesia Procedures Procedure/Date: 04/28/24 Epidural: Time Out Performed: Yes Consents Signed: Procedure Consent Consent: from patient, risks and benefits reviewed and patient agrees to proceed Lumbar Level: L4-L5 Epidural position: sitting Epidural procedure: sterile prep of area, 1% lidocaine to numb the area, 18 g needle, negative for paresthesia passed, neg for paresthesia, test dose given, 1.5% xylocaine 1:200k epi, placed PCEA, no systemic response, sterile dressing applied, L.U.D. no apparent complications and 0.2% Ropiavacaine @ mls/hr (13) Additional Comments: CARLY at 4, negative heme/CSF with apsiration. taped at 10 at skin. pt tolerated well.
--- NOTE | 2024-04-28 20:31 | PM.DELIVERY ---
Delivery Note: Date of delivery: April 28, 2024 Pre-delivery diagnoses: 38.1 weeks gestation Spontaneous rupture of membranes less than 24 hours Multiparity Anemia affecting History of IUGR History of delivery Supervision of high risk History of migraines without aura Post-delivery diagnoses: Same Nuchal cord x 1 Procedure: Induction of labor with Pitocin with SROM Spontaneous vaginal delivery viable female Op report anesthesia: Epidural Findings: Viable female with nuchal cord x 1 easily reduced Apgars 8/8 Post Delivery Diagnoses: Anemia affecting : Qualifiers: Trimester: third trimester Qualified Code(s): O99.013 - Anemia complicating , third trimester Gestational diabetes: Qualifiers: Gestational diabetes mellitus control: unspecified Trimester: second trimester Qualified Code(s): O24.419 - Gestational diabetes mellitus in , unspecified control IUGR (intrauterine growth restriction) affecting care of mother: Qualifiers: Fetus number: single or unspecified fetus Trimester: second trimester Qualified Code(s): O36.5920 - Maternal care for other known or suspected poor growth, second trimester, not applicable or unspecified Delivery: 23-year-old female G6, P4 at 38.1 weeks gestation who was admitted to labor and delivery with spontaneous rupture of membranes 7 PM on 04/27/2024. Patient's labor was induced/augmented with Pitocin. Patient progressed to complete dilatation and with several pushes the vertex delivered OA presentation and delivered over a intact perineum. Nuchal cord was identified and easily reduced. The anterior followed by the posterior shoulders delivered with the remainder the baby's body to follow. Delay in cord clamping, the cord was then cut and the baby placed on mother's chest for bonding. Nursing staff present for evaluation and assessment. Three-vessel cord was noted, cord blood drawn and handed off. The uterus was massaged and the placenta presented in a Coyne presentation with trailing membranes. IV Pitocin solution and a bolus manner was started. The vaginal vault was explored with no lacerations noted. The peritoneum was also noted to be intact. The fundus continue to be massaged with no excessive bleeding noted. The peritoneum was cleansed and dressings changed. Mother and are both in stable satisfactory condition. History History History 6 Term 3 1 Miscarriages/Ectopic 1 Living Children 4 A&P Assessment and plan (1) 38 weeks gestation of : (2) SROM (spontaneous rupture of membranes): (3) Anemia affecting : Qualifiers: Trimester: third trimester Qualified Code(s): O99.013 - Anemia complicating , third trimester (4) Supervision of high risk , unspecified, third trimester: Begin care. (5) Spontaneous vaginal delivery: (6) Gestational diabetes: Qualifiers: Gestational diabetes mellitus control: unspecified Trimester: second trimester Qualified Code(s): O24.419 - Gestational diabetes mellitus in , unspecified control (7) Migraine without aura: (8) IUGR (intrauterine growth restriction) affecting care of mother: Qualifiers: Fetus number: single or unspecified fetus Trimester: second trimester Qualified Code(s): O36.5920 - Maternal care for other known or suspected poor growth, second trimester, not applicable or unspecified (9) History of delivery, currently : Coding Level of Care Code Acute Code for Chg Fwd Diagnoses 38 weeks gestation of Z3A.38 SROM (spontaneous rupture of membranes) Anemia affecting in third trimester O99.013 Trimester: third trimester Supervision of high risk , unspecified, third trimester O09.93 Spontaneous vaginal delivery O80 Gestational diabetes mellitus (GDM) in second trimester, gestational diabetes method of control unspecified O24.419 Gestational diabetes mellitus control: unspecified Trimester: second trimester Migraine without aura G43.009 Poor growth affecting management of mother in second trimester, single or unspecified fetus O36.5920 Fetus number: single or unspecified fetus Trimester: second trimester History of delivery, currently O09.899
[2024-04-29] VITALS (10 sets, daily range): BP systolic 95–118; BP diastolic 59–78; PULSE 72–89; RESP 16–18; TEMP 36.7–36.9; O2SAT 97–100
[2024-04-29 06:01] LABS: Glucose Point of Care 81 mg/dL (70-110)
[2024-04-29 08:35] LABS: Hematocrit 34.9 % (36-47); Mean Corpuscular HGB Conc 31.8 g/dL (30-55); Mean Corpuscular Hemoglobin 27.8 pg (27-33); Mean Corpuscular Volume 87.3 fl (85-98); Platelet Count 311 10^3/cmm (157-399); Red Cell Distribution Width 16.8 % (12.1-15.1); White Blood Count 15.23 10^3/uL (3.29-11.43)
[2024-04-29] MEDS: docusate sodium 100 mg Capsule PO (10:26)
[2024-04-29] MEDS: PRENATAL VIT NO.130/IRON/FOLIC 1 EACH TABLET PO (10:26)
[2024-04-29] MEDS: ibuprofen 800 mg tablet PO ×2 (10:26→15:49)
--- NOTE | 2024-04-29 12:48 | PM.OBGYPN ---
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 Patient is attempting to breast-feed, baby hesitant to latch on. Will get assistance. VSS, afebrile Exam?unremarkable Lab?reviewed, fasting blood sugar 80 Discussed discharge expectations and instructions including no heavy lifting pushing or pulling no sexual intercourse douching or tampons x 6 weeks. Encourage patient to attend her visit where contraception will be reviewed. Encourage patient to continue her vitamins and iron which she has at home. Patient verbalizes understanding. Labor: Station: +2 Amniotic Membrane Status: Ruptured Monitor Mode: Palpation Contraction Pattern: Regular Status: Category I Vitals/I&O/Wt Last Vital Signs Temp 98.0 F 04/29/24 10:27 Pulse 82 04/29/24 10:27 Resp 16 04/29/24 10:27 BP 102/69 04/29/24 10:27 Pulse Ox 99 04/29/24 06:15 O2 Del Method Room Air 04/29/24 06:15 04/28/24 04/29/24 04/29/24 22:59 06:59 14:59 Intake Total 392.333 / 392.333 Balance 392.333 / 392.333 Weight last 48 hrs Weight 71.668 kg Physical Exam Resp: COMMON NORMALS: clear to auscultation bilaterally AUSCULTATION: clear to auscultation bilaterally Cardio: COMMON NORMALS: regular rate and regular rhythm RATE: regular rate RHYTHM: regular rhythm Back/Pelvis: OTHER: Abdomen?soft, fundus firm below the umbilicus. Lochia/light. Extremity: COMMON NORMALS: no clubbing, cyanosis or edema and no calf tenderness Data 04/29/24 08:14 A&P Assessment and plan (1) Spontaneous vaginal delivery: Will DC to home this p.m. Patient to follow-up in 4 weeks for visit. Patient to continue vitamins and iron daily. (2) SROM (spontaneous rupture of membranes): (3) 38 weeks gestation of : (4) Anemia affecting : Qualifiers: Trimester: third trimester Qualified Code(s): O99.013 - Anemia complicating , third trimester (5) Supervision of high risk , unspecified, third trimester: (6) Migraine without aura: (7) Gestational diabetes: Qualifiers: Gestational diabetes mellitus control: unspecified Trimester: second trimester Qualified Code(s): O24.419 - Gestational diabetes mellitus in , unspecified control (8) IUGR (intrauterine growth restriction) affecting care of mother: Qualifiers: Fetus number: single or unspecified fetus Trimester: second trimester Qualified Code(s): O36.5920 - Maternal care for other known or suspected poor growth, second trimester, not applicable or unspecified Attestations Medical Necessity Statement*: Patient admitted to labor and delivery for management of labor. Coding Level of Care Code Acute Code for Chg Fwd Diagnoses Spontaneous vaginal delivery O80 SROM (spontaneous rupture of membranes) 38 weeks gestation of Z3A.38 Anemia affecting in third trimester O99.013 Trimester: third trimester Supervision of high risk , unspecified, third trimester O09.93 Migraine without aura G43.009 Gestational diabetes mellitus (GDM) in second trimester, gestational diabetes method of control unspecified O24.419 Gestational diabetes mellitus control: unspecified Trimester: second trimester Poor growth affecting management of mother in second trimester, single or unspecified fetus O36.5920 Fetus number: single or unspecified fetus Trimester: second trimester
--- NOTE | 2024-04-29 12:53 | PM.OBGYDC ---
Discharge Providers SITE SPECIALIST Date of Admission: 04/28/24 14:02 Date of Discharge: 04/29/24 Attending Provider at Admission: Tonia Coe DO Attending Provider at Discharge: Tonia Coe DO Primary SITE SPECIALIST: Dr. Sood Primary Care Provider: Amina Valero Diagnoses at Discharge Discharge Diagnosis (1) Spontaneous vaginal delivery: Status: Acute (2) SROM (spontaneous rupture of membranes): Status: Acute (3) 38 weeks gestation of : Status: Acute (4) Anemia affecting : Status: Acute Qualifiers: Trimester: third trimester Qualified Code(s): O99.013 - Anemia complicating , third trimester (5) Supervision of high risk , unspecified, third trimester: Status: Acute (6) Migraine without aura: Status: Acute (7) Gestational diabetes: Status: Acute Qualifiers: Gestational diabetes mellitus control: unspecified Trimester: second trimester Qualified Code(s): O24.419 - Gestational diabetes mellitus in , unspecified control (8) IUGR (intrauterine growth restriction) affecting care of mother: Details from hospital stay: 23-year-old female s/p viable female 5 pounds 15 ounces delivered on 04/28/2024. Patient presented to labor and delivery with complaints of spontaneous rupture membranes on 04/27/2024 approximately 7:00 PM. Patient denied painful contractions or vaginal bleeding. She admitted to good movement. After observation discussion of Pitocin induction/augmentation with patient was done and patient consented for Pitocin. Patient progressed through labor and uneventful manner receiving epidural anesthesia for pain management. After complete dilatation, patient pushed several times with delivery of the vertex with a nuchal cord being noted and reduced and the remained the baby's body to follow. Patient's uterus was massaged no excessive bleeding was encountered. Patient's stay has been uneventful. Patient is ambulating tolerating regular diet and voiding and caring for her without nursing assistance. Patient is attempting to breast-feed but complaints of baby not latching on well. Will alert nursing staff so that they can assist with . Discussion of expectations and discharge orders have been reviewed with patient, patient and her family at bedside verbalizes understanding. Status: Acute Qualifiers: Fetus number: single or unspecified fetus Trimester: second trimester Qualified Code(s): O36.5920 - Maternal care for other known or suspected poor growth, second trimester, not applicable or unspecified Reason for Visit Reason for Visit: POSS ROM Hospital Course Hospital Course See above Information Peripartum Data: Delivery Method: Vaginal Laceration description: None Episiotomy description: None complications: none Physical Exam Narrative: 23-year-old female alert and orient x 3 no acute distress denies pain, excessive bleeding, headaches or dizziness. Const: COMMON NORMALS: patient oriented x3 Cardio: COMMON NORMALS: regular rate and regular rhythm RATE: regular rate RHYTHM: regular rhythm Back/Pelvis: OTHER: Abdomen?soft, fundus firm below umbilicus. Lochia?light. Extremity: COMMON NORMALS: no clubbing, cyanosis or edema, no calf tenderness and no pedal edema Neuro: COMMON NORMALS: patient oriented x3, CN's II-XII intact bilaterally and moves all extremities History History History 6 Term 4 1 Miscarriages/Ectopic 1 Living Children 5 Discharge Data Studies Completed and Pending Laboratory Results WBC 15.23 10^3/uL (3.29-11.43) H 04/29/24 08:14 RBC 4.00 10^6/uL (3.85-5.65) 04/29/24 08:14 Hgb 11.10 g/dL (11.27-16.99) L 04/29/24 08:14 Hct 34.9 % (36-47) L 04/29/24 08:14 MCV 87.3 fl (85-98) 04/29/24 08:14 MCH 27.8 pg (27-33) 04/29/24 08:14 MCHC 31.8 g/dL (30-55) 04/29/24 08:14 RDW 16.8 % (12.1-15.1) H 04/29/24 08:14 Plt Count 311 10^3/cmm (157-399) 04/29/24 08:14 MPV 10.0 fL (7.4-10.4) 04/29/24 08:14 Neut % (Auto) 78.6 % 04/28/24 13:44 Lymph % (Auto) 14.2 % 04/28/24 13:44 Walton % (Auto) 5.8 % 04/28/24 13:44 Eos % (Auto) 0.3 % 04/28/24 13:44 Baso % (Auto) 0.3 % 04/28/24 13:44 Neut # (Auto) 9.40 10^3/uL (1.8-7.7) H 04/28/24 13:44 Lymph # (Auto) 1.7 10^3/uL (0.8-4.8) 04/28/24 13:44 Walton # (Auto) 0.7 10^3/uL (0.2-0.9) 04/28/24 13:44 Eos # (Auto) 0.0 10^3/uL (0.0-0.8) 04/28/24 13:44 Baso # (Auto) 0.0 10^3/uL (0.0-0.1) 04/28/24 13:44 Nucleated RBC % (auto) 0 % 04/28/24 13:44 Nucleated RBCs # 0.0 /100WBC 04/28/24 13:44 POC Glucose 81 mg/dL (70-110) 04/29/24 05:51 Insulin-like GF I Positive 04/28/24 12:52 Fluid pH (paper) Positive H 04/28/24 12:35 Blood Type O Positive 04/28/24 13:44 Rho(D) Type Rh positive 04/28/24 13:44 Antibody Screen Negative 04/28/24 13:44 Vitals Last Vital Signs Temp 98.0 F 04/29/24 10:27 Pulse 82 04/29/24 10:27 Resp 16 04/29/24 10:27 BP 102/69 04/29/24 10:27 Pulse Ox 99 04/29/24 06:15 O2 Del Method Room Air 04/29/24 06:15 Results Labs OB ([facility]): Obstetrics US 04/11/24 Obstetrics US/Biophysical Profile 04/23/24 Blood Type O Positive 04/28/24 Antibody Screen Negative 04/28/24 Hct 34.9 % (36-47) L 04/29/24 Hgb 11.10 g/dL (11.27-16.99) L 04/29/24 Rho(D) Type Rh positive 04/28/24 Plt Count 311 10^3/cmm (157-399) 04/29/24 Hep Bs Antigen Non-reactive (Nonreactive) 10/20/23 Hepatitis C Antibody Non-reactive (Nonreactive) 10/20/23 Rubella IgG Antibody 121.1 IU/mL (0.0-10.0) H 10/20/23 RPR Nonreactive (Nonreactive) 10/20/23 HIV 1&2 Ab & HIV 1 Ag Non-reactive (Non-Reactiv) 10/20/23 C.trachomatis RNA (TMA) Not detected (NOT DETECTED) 11/03/23 N.gonorrhoeae RNA (TMA) Not detected (NOT DETECTED) 11/03/23 T. vaginalis Amp RNA Not detected (NOT DETECTED) 11/03/23 Chlamydia/GC Comment See note 11/03/23 Gest Glucose Tolerance mg/dL 01/31/24 HCG, Qual Positive (Negative) H 09/14/23 Urine Opiates Screen Negative ng/mL (Negative) 10/20/23 Ur Barbiturates Screen Negative ng/mL (Negative) 10/20/23 Ur Phencyclidine Scrn Negative ng/mL (Negative) 10/20/23 Ur Amphetamines Screen Negative ng/mL (Negative) 10/20/23 U Benzodiazepines Scrn Negative ng/mL (Negative) 10/20/23 Urine Cocaine Screen Negative ng/mL (Negative) 10/20/23 U Marijuana (THC) Screen Negative ng/mL (Negative) 10/20/23 Micro Urine Specimen 02/22/24 Discharge Plan Discharge Patient Disposition: Home Condition: Stable Prescriptions: Continued (DME) blood-glucose meter [Blood Glucose Monitoring] Kit See Rx Instructions .Route Qty: 1 0RF Rx Instructions: To check blood sugars fasting, before meals, 2 hours after meals and at bedtime until further directed. cephalexin 500 mg capsule 500 mg PO DAILY Qty: 90 0RF (DME) insulin syringe-needle U-100 [BD Insulin Syringe] 0.3 mL 29 gauge x 1/2 syringe See Rx Instructions .Route Qty: 100 1RF Rx Instructions: As directed ferrous sulfate 325 mg (65 mg iron) tablet 325 mg PO BID Qty: 60 2RF Discharge Orders: Discharge Order (Routine); Ordered 04/29/24 Ordered By: Tonia Coe Discharge Diet: Regular Discharge Activity: Resume usual activity Patient Instructions: Depression (DC), Opioid Safety (DC), Preeclampsia and Eclampsia After Delivery (GEN), Hemorrhage (DC), OB Discharge Report, OB Food/Drug Interaction Guide, Opioid Safety, OB Home Care, OB Vaginal Deliveries - [facility], Abnormal Bleeding Activity Restrictions/Additional Instructions: No heavy lifting pushing pulling no sexual intercourse x 6 weeks. Assessment: 1. S/p at 38.1 weeks gestation Plan of Treatment: Discharge to home this p.m. Follow-up in 4 to 6 weeks for care. Continue vitamins. Discharge Attestations SITE SPECIALIST Time Spent in Discharge Care*: less than 30 min Status at Discharge: Cognitive status at discharge: cognitively intact, Behavioral status at discharge: cooperative, Coding Level of Care Code Acute Code for Chg Fwd Diagnoses Spontaneous vaginal delivery O80 SROM (spontaneous rupture of membranes) 38 weeks gestation of Z3A.38 Anemia affecting in third trimester O99.013 Trimester: third trimester Supervision of high risk , unspecified, third trimester O09.93 Migraine without aura G43.009 Gestational diabetes mellitus (GDM) in second trimester, gestational diabetes method of control unspecified O24.419 Gestational diabetes mellitus control: unspecified Trimester: second trimester Poor growth affecting management of mother in second trimester, single or unspecified fetus O36.5920 Fetus number: single or unspecified fetus Trimester: second trimester
--- NOTE | 2024-04-30 08:00 | ANE.PACU2 ---
Inpatient post-anesthesia follow up: Airway intact: Yes Vital signs: Temperature 98.5 F Pulse Rate 81 Respiratory Rate 18 Blood Pressure 118/78 Pulse Oximetry 100 Oxygen Delivery Me thod Room Air Oxygen Flow Rate Fraction of Inspir ed Oxygen Hydration adequate: Yes Nausea and vomiting: No Pain level: 1 Mental status: Baseline Epidural Start/End: Epidural Start Date: 04/28/24 Epidural Start Time: 19:20 Epidural End Date: 04/29/24 Epidural End Time: 10:17
== END 2024-04-29 21:55 | disposition home or self-care (01) | DRG 807 ==
LOC: OPOB 14:03 → OBGYN 14:03
PROVIDERS: Admitting Provider Obstetrics & Gynecology; PCP Nurse Practitioner Family; Visit Provider Obstetrics & Gynecology
DX: O24.420 Gestational diabetes mellitus in childbirth, diet controlled (principal); Z37.0 Single live birth; O36.5930 Maternal care for other known or suspected poor fetal growth, third trimester, not applicable or unspecified; O99.02 Anemia complicating childbirth; D64.9 Anemia, unspecified; O69.81X0 Labor and delivery complicated by cord around neck, without compression, not applicable or unspecified; Z3A.38 38 weeks gestation of pregnancy
CPT/HCPCS: 36415; 36416; 59025; 59409; 82962; 83986; 84112; 85025; 85027; 86850; 86900; 99211; J2405; J2590; J2795; J7120; J7121

== ENCOUNTER → 2024-08-15 10:59 | Outpatient (BNVA) | payer MEDICAID, SELFPAY | PROVIDERS: PCP Nurse Practitioner Family; Referring Provider Nurse Practitioner Women's Health; Visit Provider Psychiatry & Neurology Neurology | DX: E55.9 Vitamin D deficiency, unspecified; E53.8 Deficiency of other specified B group vitamins | CPT/HCPCS: 80053; 82306; 82607; 82746; 83090; 83735; 83921; 84439; 84443; 84481; 85025 ==

== ENCOUNTER 2024-11-22 16:11 | Emergency (ER) | payer MEDICAID, SELFPAY ==
[2024-11-22 16:14] VITALS: BP 107/72; PULSE 84; RESP 14; TEMP 36.7; O2SAT 100; BMI 23.6
[2024-11-22 16:33] LABS: Basophils # 0.1 10^3/uL (0.0-0.1); Basophils % 0.6 %; Eosinophils # 0.2 10^3/uL (0.0-0.8); Eosinophils % 1.5 %; Lymphocytes # 2.7 10^3/uL (0.8-4.8); Lymphocytes % 20.6 %; Mean Corpuscular Hemoglobin 25.9 pg (27-33); Mean Corpuscular Volume 83.7 fl (85-98); Mean Platelet Volume 9.1 fL (7.4-10.4); Monocytes # 0.8 10^3/uL (0.2-0.9); Monocytes % 5.8 %; Neutrophils # 9.28 10^3/uL (1.8-7.7); Neutrophils % 71.2 %; Nucleated Red Blood Cells % 0 %; Platelet Count 459 10^3/cmm (157-399); Red Blood Count 5.02 10^6/uL (3.85-5.65); Red Cell Distribution Width 14.5 % (12.1-15.1); White Blood Count 13.02 10^3/uL (3.29-11.43)
[2024-11-22 16:38] LABS: Bacteria Urine None Seen /hpf; Squamous Epithelial Cell Urine 0-5 /hpf (0-5); WBC Urine 0-5 /hpf (0-5)
[2024-11-22 16:50] LABS: Add Urine Microscopic? YES; Bilirubin Urine Negative (Negative); Blood Urine 2+ (Negative); Glucose Urine UA Negative (Normal); Ketones Urine Negative (Negative); Leukocyte Esterase Urine Negative (Negative); Nitrate Urine Negative (Negative); Protein Urine Negative (Negative); Urine Color Yellow (Yellow); pH Urine 6.5 (5-7)
[2024-11-22 16:54] LABS: Urine Appearance Clear (CLEAR)
[2024-11-22 16:54] LABS: HCG, Serum Qual Negative (Negative)
[2024-11-22 16:55] LABS: Add Urine Culture? Yes
[2024-11-22 16:56] LABS: Alanine Aminotransferase 10 U/L (0-33); Albumin Level 4.4 g/dL (3.5-5.2); Alkaline Phosphatase 117 U/L (35-105); Aspartate Amino Transferase 12 U/L (0-32); Blood Urea Nitrogen 11 mg/dL (6-20); Calcium 9.1 mg/dL (8.5-10.5); Carbon Dioxide 24 mmol/L (22-29); Chloride 103 mmol/L (98-107); Creatinine Clr Calc Pharmacy 218.4332; Globulin 3.7 g/dL (1.3-4.6); Glomerular Filtration Rate 194.5 mL/min (90-130); Glucose 79 mg/dL (65-115); Lipase 23 U/L (13-60); Osmolality Calculated 284 mOsm/kg (285-295); Sodium 138 mmol/L (136-145); Total Bilirubin 0.6 mg/dL (0.15-1.2); Total Protein 8.1 g/dL (6.6-8.7)
--- NOTE | 2024-11-22 17:11 | CTR_ITS ---
PROCEDURE INFORMATION: Exam: CT Abdomen And Pelvis Without Contrast Exam date and time: 11/22/2024 5:18 PM Age: 24 years old Clinical indication: Abdominal pain; Flank; Left; Additional info: Left flank pain TECHNIQUE: Imaging protocol: Computed tomography of the abdomen and pelvis without contrast. Radiation optimization: All CT scans at this facility use at least one of these dose optimization techniques: automated exposure control; mA and/or kV adjustment per patient size (includes targeted exams where dose is matched to clinical indication); or iterative reconstruction. COMPARISON: US OB BPP wo NST [id number] 04/23/2024 12:56 PM RADIATION DOSE METRICS: Total DLP (mGy-cm): 452.1 FINDINGS: Liver: Normal. No mass. Gallbladder and biliary ducts: Normal. No calcified stones. No ductal dilation. Pancreas: Normal. No ductal dilation. Spleen: Normal. No splenomegaly. Adrenal glands: Normal. No mass. Kidneys and ureters: Multiple punctate nonobstructing stones in the right and left kidneys with no hydronephrosis or renal calculus. Stomach and bowel: Unremarkable. No obstruction. No mucosal thickening. Appendix: No evidence of appendicitis. Intraperitoneal space: Unremarkable. No free air. No significant fluid collection. Vasculature: Unremarkable. No abdominal aortic aneurysm. Lymph nodes: Unremarkable. No enlarged lymph nodes. Urinary bladder: Unremarkable as visualized. Reproductive: Unremarkable as visualized. Bones/joints: Unremarkable. No acute fracture. Soft tissues: Unremarkable. CT/CT kidney stone [id number] IMPRESSION: 1. No bowel obstruction or inflammatory process associated with the bowel. 2. No free air or significant free fluid in the abdomen or pelvis. 3. No evidence of appendicitis. 4. No hydronephrosis or renal calculus. No stone in the bladder.
--- NOTE | 2024-11-22 17:16 | ED_ITS ---
HPI - Abdominal Pain 2 General: Chief Complaint: Abdominal Pain Stated Complaint: left side abdominal/back pain Time Seen by Provider: 11/22/24 16:59 Source: patient Mode of arrival: ambulatory Limitations: no limitations History of Present Illness: 24yo female presents with family for keesha luation of left-sided flank/abdominal pain that started at approximately 1230 today and has not stopped. Patient reports that the pain is sharp in nature. States she has been nauseated since the pain started and vomits anytime that she attempts to eat anything. Patient denies any previous abdominal surgeries, recent illness, fever, history of kidney stones, possibility of , any other concerns at this time. Patient does report approximately 3 years ago she had gallstones that were so bad she was going to have her gallbladder removed, but never did. Associated Symptoms: Reports nausea and vomiting; Denies chills, dysuria and fever(s) Related Data Date of Last Menstrual Period: 11/21/24 Previous Rx's ?Medication ?Instructions ?Recorded ferrous sulfate 325 mg (65 mg 325 mg PO BID #60 tabs 0 04/03/24 iron) tablet cholecalciferol (vitamin D3) 1,250 50,000 unit PO .noemi cantujoseline #14 caps 08/15/24 mcg (50,000 unit) capsule galcanezumab-gnlm 120 mg/mL 120 mg SUBCUT ONCE #1 mL 0 08/15/24 subcutaneous pen injector (Emgality Pen) galcanezumab-gnlm 120 mg/mL 240 mg (2 mL) SUBCUT ONCE #2 mL 08/15/24 subcutaneous pen injector (Emgality Pen) venlafaxine 37.5 mg 37.5 mg PO DAILY #30 caps capsule,extended release 24 hr (Effexor XR) dicyclomine 10 mg capsule 10 mg PO QID PRN abdominal p ain 11/22/24 #20 caps ketorolac 10 mg tablet 10 mg PO QID PRN pain 5 days #20 11/22/24 tabs ondansetron 4 mg disintegrating 4 mg PO Q6H PRN nausea and 11/22/24 tablet vomiting #20 tabs Allergies Allergy/AdvReac Type Severity Reaction Status Date / Time coconut Allergy ALGY-Swell Verified 11/22/24 16:18 Lip/Tongue/Throat Latex, Natural Rubber Allergy ALGY-Rash Verified 11/22/24 16:18 Review of Systems 2 Const: Denies: fever(s), chills or body aches Card: Denies: chest pain Resp: Denies: dyspnea GI: Reports: abdominal pain, nausea and vomiting : Reports: flank pain; Denies: difficulty voiding, dysuria or pelvic pain PFSH ED 2 PFSH: Medical History Anemia affecting Migraine without aura Gestational diabetes IUGR (intrauterine growth restriction) affecting care of mother UTI in , antepartum History of delivery, currently No pertinent past medical history neghx: htn,dm,thyroid,dv/pe PCP: Amina Valero Surgical History No pertinent past surgical history Family History Mother Hypertension Hyperlipidemia Thyroid disease Hypothyroidism Denies family history of Diabetes CAD (coronary artery disease) Clotting disorder Chronic kidney disease (CKD) Bleeding disorder Cancer Stroke Social History Smoking and tobacco/nicotine status: never used tobacco/nicotine Female Reproductive History: Date of last menstrual period: 11/21/24 S pontaneous abortions: No Physical Exam 2 Const: COMMON NORMALS: no acute distress, patient oriented x3, healthy appearing and alert GENERAL APPEARANCE: cooperative O RIENTATION/CONSCIOUSNESS: Yes awake OTHER: Patient is sitting upright in the stretcher no acute distress. She is able to give history with no difficulty. She is interactive with exam appropriately. Family is at bedside HENMT: COMMON NORMALS: normocephalic and atraumatic HEAD & SCALP: n ormocephalic and atraumatic Eye: COMMON NORMALS: conjunctivae normal CONJUNCTIVA: Yes conjunctivae normal Neck/C-Spine: COMMON NORMALS: full ROM Chest: CHEST: Yes Symmetrical chest wall rise Resp: COMMON NORMALS: normal respiratory effort, No use of accessory muscles and clear to auscultation bilaterally EFFORT & INSPECTION: Yes able to speak in complete sentences AUSCULTATION: clear to auscultation bilaterally Cardio: COMMON NORMALS: regular rate RATE: regular rate GI: COMMON NORMALS: Soft to palpation PALPATION: Yes Soft to palpation and Yes Tenderness to palpation present (GI) Details: LLQ, LUQ and other (umbilical, suprapubic) : BLADDER/KIDNEY EXAM: Yes CVA tenderness on the left Back/Pelvis: GENERAL BACK: Yes CVA tenderness Extremity: COMMON NORMALS: full ROM (MAEW) Neuro: COMMON NORMALS: patient oriented x3 SENSORIUM/ORIENTATION: Yes alert Psych: COMMON NORMALS: cooperative ATTITUDE: Yes calm Course 2 Vital Signs: Vital signs: Vital Signs Temperature 98.1 F 11/22/24 16:14 Pulse Rate 79 11/22/24 17:51 Respiratory Rate 14 11/22/24 16:14 Blood Pressure 111/73 11/22/24 17:51 Pulse Oximetry 100 11/22/24 17:51 Oxygen Delivery Me thod Room Air 11/22/24 16:14 MDM - Abdominal Pain Medical Decision Making 24yo female presents with family for evaluation of left-sided flank/abdominal pain that started at approximately 1230 today and has not stopped. Patient reports that the pain is sharp in nature. States she has been nauseated since the pain started and vomits anytime that she attempts to eat anything. Patient denies any previous abdominal surgeries, recent illness, fever, history of kidney stones, possibility of , any other concerns at this time. Patient is nontoxic in appearance. Vital signs are stable. Labs obtained while awaiting room placement. Leukocytosis with a white blood cell count of 13.02. No indication of anemia, hemoglobin is 13.0. Platelets are elevated at 459, decreased from 510 on patient's previous labs on 08/15/24. No electrolyte, renal, or hepatic abnormalities noted. hCG qualitative is negative. UA with 2+ blood and 11-20 red blood cells, no bacteria noted. Discussed these findings with patient and family. Given that the patient does have left CVA tenderness as well as left-sided abdominal discomfort and hematuria, will proceed with CT for concern of renal calculi. No acute abnormalities noted on the CT scan. Discussed findings with patient and family. Advised we would provide medication to help with abdominal pain. Dicyclomine and ketorolac provided in the emergency department. Short course sent to patient's pharmacy. Advised to increase fluid intake and continue to monitor symptoms. Recommend follow-up with primary care, call Monday with an update of symptoms and to discuss a recheck. Return precautions provided. Patient and family state understanding and have no further questions or concerns at this time. Differential Diagnosis Likely abdominal pain, calculus of kidney, constipation and small bowel obstruction Medical Records I reviewed the patient's medical records. Lab Data I reviewed the patient's lab results. 11/22/24 16:26 11/22/24 16:26 Labs/Radiology: Radiology Impressions Abdomen/Pelvis CT 11/22/24 17:11 IMPRESSION: 1. No bowel obstruction or inflammatory process associated with the bowel. 2. No free air or significant free fluid in the abdomen or pelvis. 3. No evidence of appendicitis. 4. No hydronephrosis or renal calculus. No stone in the bladder. Laboratory Results WBC 13.02 10^3/uL (3.29-11.43) H 11/22/24 16:26 RBC 5.02 10^6/uL (3.85-5.65) 11/22/24 16:26 Hgb 13.00 g/dL (11.27-16.99) 11/22/24 16:26 Hct 42.0 % (36-47) 11/22/24 16: MCV 83.7 fl (85-98) L 11/22/24 16:26 MCH 25.9 pg (27-33) L 11/22/24 16: MCHC 31.0 g/dL (30-55) 11/22/24 16: RDW 14.5 % (12.1-15.1) 11/22/24 16:26 Plt Count 459 10^3/cmm (157-399) H 11/22/24 16:26 MPV 9.1 fL (7.4-10.4) 11/22/24 16:26 Neut % (Auto) 71.2 % 11/22/24 16:26 Lymph % (Auto) 20.6 % 11/22/24 16:26 Rogers % (Auto) 5.8 % 11/22/24 16:26 Eos % (Auto) 1.5 % 11/22/24 16:26 Baso % (Auto) 0.6 % 11/22/24 16:26 Neut # (Auto) 9.28 10^3/uL (1.8-7.7) H 11/22/24 16:26 Lymph # (Auto) 2.7 10^3/uL (0.8-4.8) 11/22/24 16:26 Rogers # (Auto) 0.8 10^3/uL (0.2-0.9) 11/22/24 16:26 Eos # (Auto) 0.2 10^3/uL (0.0-0.8) 11/22/24 16:26 Baso # (Auto) 0.1 10^3/uL (0.0-0.1) 11/22/24 16:26 Nucleated RBC % (auto) 0 % 11/22/24 16:26 Nucleated RBCs # 0.0 /100WBC 11/22/24 16:26 Sodium 138 mmol/L (136-145) 11/22/24 16:26 Potassium 4.0 mmol/L (3.5-5.1) 11/22/24 16:26 Chloride 103 mmol/L (98-107) 11/22/24 16:26 Carbon Dioxide 24 mmol/L (22-29) 11/22/24 16:26 Anion Gap 15.0 (5-19) 11/22/24 16:26 BUN 11 mg/dL (6-20) 11/22/24 16:26 Creatinine 0.4 mg/dL (0.5-0.9) L 11/22/24 16:26 GFR Calculation 194.5 mL/min (90-130) H 11/22/24 16:26 Glucose 79 mg/dL (65-115) 11/22/24 16:26 Calculated Osmolality 284 mOsm/kg (285-295) L 11/22/24 16:26 Calcium 9.1 mg/dL (8.5-10.5) 11/22/24 16:26 Total Bilirubin 0.6 mg/dL (0.15-1.2) 11/22/24 16:26 AST 12 U/L (0-32) 11/22/24 16:26 ALT 10 U/L (0-33) 11/22/24 16:26 Alkaline Phosphatase 117 U/L (35-105) H 11/22/24 16:26 Total Protein 8.1 g/dL (6.6-8.7) 11/22/24 16:26 Albumin 4.4 g/dL (3.5-5.2) 11/22/24 16:26 Globulin 3.7 g/dL (1.3-4.6) 11/22/24 16:26 Lipase 23 U/L (13-60) 11/22/24 16:26 HCG, Qual Negative (Negative) 11/22/24 16:26 Urine Color Yellow (Yellow) 11/22/24 16:20 Urine Appearance Clear (CLEAR) 11/22/24 16:20 Urine pH 6.5 (5-7) 11/22/24 16:20 Ur Specific Graham 1.020 (1.005-1.030) 11/22/24 16:20 Urine Protein Negative (Negative) 11/22/24 16:20 Urine Glucose (UA) Negative (Normal) 11/22/24 16:20 Urine Ketones Negative (Negative) 11/22/24 16:20 Urine Blood 2+ (Negative) A 11/22/24 16:20 Urine Nitrate Negative (Negative) 11/22/24 16:20 Urine Bilirubin Negative (Negative) 11/22/24 16:20 Urine Urobilinogen 1.0 mg/dL (Negative) 11/22/24 16:20 Ur Leukocyte Esterase Negative (Negative) 11/22/24 16:20 Urine RBC 11-20 /hpf (0-2) H 11/22/24 16:20 Urine WBC 0-5 /hpf (0-5) 11/22/24 16:20 Ur Squamous Epith Cells 0-5 /hpf (0-5) 11/22/24 16:20 Amorphous Sediment Not Reportable 11/22/24 16:20 Urine Bacteria None seen /hpf (NONE) 11/22/24 16:20 Hyaline Casts 0.40 /lpf 11/22/24 16:20 All radiology interpretation(s) finalized by discharge Discharge Plan Discharge Patient Disposition: Home Clinical Impression: Left sided abdominal pain Condition: Stable Prescriptions: New dicyclomine 10 mg capsule 10 mg PO QID PRN (Reason: abdominal pain) Qty: 20 0RF ketorolac 10 mg tablet 10 mg PO QID PRN (Reason: pain) 5 Days Qty: 20 0RF ondansetron 4 mg tablet,disintegrating 4 mg PO Q6H PRN (Reason: nausea and vomiting) Qty: 20 0RF No Action Emgality Pen 120 mg/mL pen injector 240 mg SUBCUT ONCE Qty: 2 0RF Rx Instructions: loading dose Emgality Pen 120 mg/mL pen injector 120 mg SUBCUT ONCE Qty: 1 3RF ferrous sulfate 325 mg (65 mg iron) tablet 325 mg PO BID Qty: 60 2RF cholecalciferol (vitamin D3) 1,250 mcg (50,000 unit) capsule 50,000 unit PO .weekly Qty: 14 4RF venlafaxine [Effexor XR] 37.5 mg capsule,extended release 24hr 37.5 mg PO DAILY Qty: 30 3RF Discharge Orders: Discharge ED (Routine); Ordered 11/22/24 Ordered By: Navin Valderrama Discharge Diet: Usual diet Discharge Activity: Increase activity as tolerated Patient Instructions: Abdominal Pain (ED), Opioid Safety, Pain Management Activity Restrictions/Additional Instructions: No acute abnormalities were noted on the CT scan Dicyclomine, ketorolac, and ondansetron were sent to the pharmacy to help with pain and nausea/vomiting. Please do not take ibuprofen or naproxen while taking ketorolac Increase your fluid intake and continue to monitor symptoms Follow-up with primary care, call Monday with an update of symptoms and to discuss a recheck Return to the emergency department if any rapid worsening symptoms, onset of fever associated with worsening, and as needed. Print Language: Vietnamese Coding Level of Care Code ED [employer] for Debbie Head
[2024-11-22 17:51] VITALS: BP 111/73; PULSE 79; O2SAT 100
[2024-11-22 18:44] VITALS: BP 109/69; PULSE 85; O2SAT 100
[2024-11-22] MEDS: dicyclomine 20 mg Tablet 10 MG PO (18:44)
[2024-11-22] MEDS: ketorolac 10 mg Tablet PO (18:44)
== END 2024-11-22 18:46 | disposition home or self-care (01) ==
PROVIDERS: Emergency Medicine; Emergency Provider Nurse Practitioner
DX: R10.9 Unspecified abdominal pain (principal)
CPT/HCPCS: 36415; 74176; 80053; 81001; 83690; 84703; 85025; 87077; 87086; 87186; 99284; J9999

== ENCOUNTER 2024-12-11 14:11 | Outpatient (CLI) | payer MEDICAID, SELFPAY ==
--- NOTE | 2024-12-11 14:30 | MR_ITS ---
WS: [id number] MRI BRAIN WITH AND WITHOUT CONTRAST HISTORY: G43.011 - Migraine without aura, intractable, with status... COMPARISON: None available. TECHNIQUE: Multiplanar imaging performed through the brain with MultiHance 14 ml's IV. No acute infarcts are seen. Baldwin-white matter differentiation is well preserved. No susceptibility artifacts or prior lacunar infarcts. Ventricles and extra-axial spaces are normal. Clivus and pituitary gland are normal. Mild ectopia of the cerebellar tonsils. No enhancing masses. No vascular malformations. Dural venous sinuses are normal. Paranasal sinuses: Well aerated with no significant disease. Mastoid air cells: Normal. Calvarium and scalp: Normal. MR/MR head wo/w con [id number] IMPRESSION: 1. Normal MRI brain with contrast. 2. No prior infarct, hemorrhage or enhancing mass.
[2024-12-11] MEDS: gadobenate dimeglumine 20 mL vial 14 ML IV (14:58)
== END 2024-12-11 14:12 | disposition home or self-care (01) ==
PROVIDERS: PCP Nurse Practitioner Family; Visit Provider Psychiatry & Neurology Neurology
DX: G43.011 Migraine without aura, intractable, with status migrainosus (principal); G43.909 Migraine, unspecified, not intractable, without status migrainosus
CPT/HCPCS: 70553

== ENCOUNTER 2024-12-20 12:12 | Emergency (ER) | payer MEDICAID, SELFPAY ==
[2024-12-20 12:18] VITALS: BP 125/84; PULSE 99; RESP 17; TEMP 36.7; O2SAT 100
[2024-12-20 12:20] LABS: Glucose Point of Care 114 mg/dL (70-110)
--- NOTE | 2024-12-20 12:22 | CTR_ITS ---
PROCEDURE INFORMATION: Exam: CT Head Without Contrast Exam date and time: 12/20/2024 12:24 PM Age: 24 years old Clinical indication: Stroke-like symptoms; RT upper extremity weakness; Additional info: Symptoms of acute stroke TECHNIQUE: Imaging protocol: Computed tomography of the head without contrast. Radiation optimization: All CT scans at this facility use at least one of these dose optimization techniques: automated exposure control; mA and/or kV adjustment per patient size (includes targeted exams where dose is matched to clinical indication); or iterative reconstruction. Other technique: STROKE PROTOCOL was implemented. COMPARISON: MR head wo/w con [id number] 12/11/2024 2:32 PM RADIATION DOSE METRICS: Total DLP (mGy-cm): 994.25 FINDINGS: Brain: Baldwin-white junction is maintained. Cerebral ventricles: No ventriculomegaly. Paranasal sinuses: The included portions of the paranasal sinuses are clear. Mastoid air cells: The mastoid air cells are clear. No acute infarction or hemorrhage is detected. No mass is detected. Bones: Unremarkable. No acute fracture. Soft tissues: Unremarkable. CT/CT head thrombolytic [id number] IMPRESSION: Negative for acute intracranial findings ASSESSMENT: ASPECTS ([place] Stroke Program Early CT Score) is 10
--- NOTE | 2024-12-20 12:27 | ED_ITS ---
HPI - Neuro Symptoms/Deficit 2 General: Chief Complaint: Headache Stated Complaint: stroke like symptoms Time Seen by Provider: 12/20/24 12:19 Source: patient Mode of arrival: ambulatory Limitations: no limitations History of Present Illness: 24-year-old female who has a history of migraines that she has had a migraine over the last 3 days states that at 930 they started having some numbness in her right arm with some weakness in her right arm. States she typically does not have the symptoms with her migraines rates her migraine a 7 out of 10. She is ambulatory no slurred speech denies any fevers. Associated symptoms: Reports headache(s); Deny chest pain, nausea or vomiting Related Data Home Medications ?Medication ?Instructions ?Recorded ?Confirmed ketorolac 10 mg tablet 10 mg PO Q6H PRN 12/04/24 Previous Rx's ?Medication ?Instructions ?Recorded ferrous sulfate 325 mg (65 mg 325 mg PO BID #60 tabs 0 04/03/24 iron) tablet dicyclomine 10 mg capsule 10 mg PO QID PRN abdominal p ain 11/22/24 #20 caps ondansetron 4 mg disintegrating 4 mg PO Q6H PRN nausea and 11/22/24 tablet vomiting #20 tabs cholecalciferol (vitamin D3) 1,250 50,000 unit PO .noemi lara #14 caps 12/04/24 mcg (50,000 unit) capsule galcanezumab-gnlm 120 mg/mL 120 mg SUBCUT ONCE #1 mL 0 12/04/24 subcutaneous pen injector (Emgality Pen) galcanezumab-gnlm 120 mg/mL 240 mg (2 mL) SUBCUT ONCE #2 mL 12/04/24 subcutaneous pen injector (Emgality Pen) venlafaxine 37.5 mg 37.5 mg PO DAILY #30 caps capsule,extended release 24 hr (Effexor XR) Allergies Allergy/AdvReac Type Severity Reaction Status Date / Time coconut Allergy ALGY-Swell Verified 12/04/24 14:05 Lip/Tongue/Throat Latex, Natural Rubber Allergy ALGY-Rash Verified 12/04/24 14:05 Review of Systems 2 Const: Denies: fever(s), chills, body aches or change in appetite Eyes: Denies: blurry vision or eye discomfort ENMT: Denies: throat pain or dental pain Card: Denies: chest pain Resp: Denies: dyspnea GI: Denies: abdominal pain, nausea, vomiting or diarrhea Musc: Denies: neck pain or back pain Skin/Breast: Denies: rash Neuro: Reports: headache(s), weakness in extremities and sensory changes PFSH ED 2 PFSH: Medical History Anemia affecting Migraine without aura Gestational diabetes IUGR (intrauterine growth restriction) affecting care of mother UTI in , antepartum History of delivery, currently No pertinent past medical history neghx: htn,dm,thyroid,dv/pe PCP: Amina Valero Surgical History No pertinent past surgical history Family History Mother Hypertension Hyperlipidemia Thyroid disease Hypothyroidism Denies family history of Diabetes CAD (coronary artery disease) Clotting disorder Chronic kidney disease (CKD) Bleeding disorder Cancer Stroke Social History Smoking and tobacco/nicotine status: never used tobacco/nicotine Female Reproductive History: Spontaneous abortions: No NIH stroke score 2 NIHSS: Level Of Consciousness - 1a: 0 Level Of Consciousness Questions - 1b: Both Correct Level Of Consciousness Commands - 1c: Both Correct Best Gaze - 2: Normal Visual Martel - 3: No Visual Loss Facial Palsy - 4: N ormal Motor Arm Right - 5: Drift Motor Arm Left - 5: No Drift Motor Leg Right - 6: No Drift Motor Leg Left - 6: No Drift Limb Ataxia - 7: Absent Sensory - 8: Mild To Moderate Loss Best Language - 9: No Aphasia D ysarthia - 10: Normal Extinction And Inattention - 11: 0 Score: Total Score: 2 Physical Exam 2 Const: COMMON NORMALS: no acute distress, patient oriented x3 and healthy appearing HENMT: COMMON NORMALS: normocephalic and atraumatic HEAD & SCALP: n ormocephalic and atraumatic Eye: COMMON NORMALS: Equal, round and reactive pupils present and EOMs intact bilaterally PUPIL: Yes Equal, round and reactive pupils present Neck/C-Spine: COMMON NORMALS: full ROM and supple Chest: COMMONS NORMALS: normal inspection of the chest Resp: COMMON NORMALS: normal respiratory effort Cardio: COMMON NORMALS: regular rate, regular rhythm and No murmurs present (Cardio) RATE: regular rate RHYTHM: regular rhythm Extremity: COMMON NORMALS: normal to inspection and full ROM Neuro: COMMON NORMALS: patient oriented x3 CRANIAL NERVES: Yes CN normal except as noted GAIT: Yes Normal gait present OTHER: Slight drift to right arm decree sensation in the right arm Psych: COMMON NORMALS: mental status grossly normal, Normal thought process present and cooperative THOUGHT PROCESS: Normal thought process present Skin: COMMON NORMALS: no rashes or lesions noted and no wounds GENERAL SKIN EXAM: no rashes or lesions noted Course 2 Vital Signs: Vital signs: Vital Signs Temperature 98.0 F 12/20/24 12:18 Pulse Rate 99 12/20/24 12:18 Respiratory Rate 17 12/20/24 12:18 Blood Pressure 125/84 12/20/24 12:18 Pulse Oximetry 100 12/20/24 12:18 Oxygen Delivery Me thod Room Air 12/20/24 12:18 MDM - Neuro Symptoms/Deficit Medical Decision Making Patient presents here with migraine headache she did have some slight weakness and paresthesias right arm those are resolved with her headache likely migraine with aura head CT is normal she stable for discharge she needs to follow-up with PCP return if worsening. Medical Records I reviewed the patient's medical records. Lab Data I reviewed the patient's lab results. 12/20/24 12:43 12/20/24 12:[address] 12/20/24 12:22 IMPRESSION: Negative for acute intracranial findings ASSESSMENT: ASPECTS ([place] Stroke Program Early CT Score) is 10 ADDENDUM: 12/20/24 1241 Addendum: Preliminary report given to Dr. Matta on 12/20/2024 at 12:38 p.m. central time Laboratory Results WBC 9.10 10^3/uL (3.29-11.43) 12/20/24 12:43 RBC 4.59 10^6/uL (3.85-5.65) 12/20/24 12:43 Hgb 12.40 g/dL (11.27-16.99) 12/20/24 12:43 Hct 39.0 % (36-47) 12/20/24 12:43 MCV 85.0 fl (85-98) 12/20/24 12:43 MCH 27.0 pg (27-33) 12/20/24 12:43 MCHC 31.8 g/dL (30-55) 12/20/24 12:43 RDW 16.2 % (12.1-15.1) H 12/20/24 12:43 Plt Count 399 10^3/cmm (157-399) 12/20/24 12:43 MPV 9.4 fL (7.4-10.4) 12/20/24 12:43 Neut % (Auto) 62.0 % 12/20/24 12:43 Lymph % (Auto) 29.7 % 12/20/24 12:43 [place] % (Auto) 5.8 % 12/20/24 12:43 Eos % (Auto) 1.3 % 12/20/24 12:43 Baso % (Auto) 0.8 % 12/20/24 12:43 Neut # (Auto) 5.64 10^3/uL (1.8-7.7) 12/20/24 12:43 Lymph # (Auto) 2.7 10^3/uL (0.8-4.8) 12/20/24 12:43 [place] # (Auto) 0.5 10^3/uL (0.2-0.9) 12/20/24 12:43 Eos # (Auto) 0.1 10^3/uL (0.0-0.8) 12/20/24 12:43 Baso # (Auto) 0.1 10^3/uL (0.0-0.1) 12/20/24 12:43 Nucleated RBC % (auto) 0 % 12/20/24 12:43 Nucleated RBCs # 0.0 /100WBC 12/20/24 12:43 PT 13.40 SECONDS (12.1-14.9) 12/20/24 12:43 INR 0.96 (0.8-1.2) 12/20/24 12:43 APTT 29.1 SECONDS (23.9-36.7) 12/20/24 12:43 Sodium 138 mmol/L (136-145) 12/20/24 12:43 Potassium 3.7 mmol/L (3.5-5.1) 12/20/24 12:43 Chloride 102 mmol/L (98-107) 12/20/24 12:43 Carbon Dioxide 24 mmol/L (22-29) 12/20/24 12:43 Anion Gap 15.7 (5-19) 12/20/24 12:43 BUN 11 mg/dL (6-20) 12/20/24 12:43 Creatinine 0.7 mg/dL (0.5-0.9) 12/20/24 12:43 GFR Calculation 102.0 mL/min (90-130) 12/20/24 12:43 Glucose 98 mg/dL (65-115) 12/20/24 12:43 POC Glucose 114 mg/dL (70-110) H 12/20/24 12:17 Calculated Osmolality 285 mOsm/kg (285-295) 12/20/24 12:43 Calcium 9.6 mg/dL (8.5-10.5) 12/20/24 12:43 Total Bilirubin 0.6 mg/dL (0.15-1.2) 12/20/24 12:43 AST 14 U/L (0-32) 12/20/24 12:43 ALT 12 U/L (0-33) 12/20/24 12:43 Alkaline Phosphatase 121 U/L (35-105) H 12/20/24 12:43 Total Protein 7.9 g/dL (6.6-8.7) 12/20/24 12:43 Albumin 4.3 g/dL (3.5-5.2) 12/20/24 12:43 Globulin 3.6 g/dL (1.3-4.6) 12/20/24 12:43 All radiology interpretation(s) finalized by discharge EKG Data EKG 1: I personally reviewed and interpreted this EKG as follows: EKG interpretation date: 12/20/24 EKG interpretation time: 12:33 Interpretation: nsr hr [address] or t wave abnormalities qrs 82 qtc 368 Discharge Plan Discharge Patient Disposition: Home Clinical Impression: Migraine, Paresthesia Condition: Stable Prescriptions: No Action ketorolac 10 mg tablet 10 mg PO Q6H PRN Rx Instructions: maximum total duration of 5 days from all oral, intranasal, or parenteral formulations cholecalciferol (vitamin D3) 1,250 mcg (50,000 unit) capsule 50,000 unit PO .weekly Qty: 14 4RF Emgality Pen 120 mg/mL pen injector 240 mg SUBCUT ONCE Qty: 2 0RF Rx Instructions: loading dose Emgality Pen 120 mg/mL pen injector 120 mg SUBCUT ONCE Qty: 1 3RF ferrous sulfate 325 mg (65 mg iron) tablet 325 mg PO BID Qty: 60 2RF venlafaxine [Effexor XR] 37.5 mg capsule,extended release 24hr 37.5 mg PO DAILY Qty: 30 3RF dicyclomine 10 mg capsule 10 mg PO QID PRN (Reason: abdominal pain) Qty: 20 0RF ondansetron 4 mg tablet,disintegrating 4 mg PO Q6H PRN (Reason: nausea and vomiting) Qty: 20 0RF Discharge Orders: Discharge ED (Routine); Ordered 12/20/24 Ordered By: Radha Matta Referrals: Amina Valero [Primary Care Provider, Nurse Practitioner] Discharge Diet: Advance as tolerated Discharge Activity: Resume usual activity Patient Instructions: Migraine Headache (ED) Print Language: Swedish Coding Level of Care Code ED Communications Planner for Debbie Head
--- NOTE | 2024-12-20 12:33 | ECG_ITS ---
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 Measurements Intervals [place] Rate: 91 P: 56 [place]: 128 QRS: 33 QRSD: 82 T: 31 QT: 319 QTc: 394 Interpretive Statements SINUS RHYTHM POSSIBLE RIGHT VENTRICULAR CONDUCTION DELAY [RSR (QR) IN V1/V2] No previous ECG available for comparison Electronically Signed On 12-24-2024 11:45:49 CDT by Min Dial M.D. [email or web address]
[2024-12-20] MEDS: ketorolac 30 mg/mL INJ IVP (12:45)
[2024-12-20] MEDS: diphenhydrAMINE 50 mg/mL SDV 1mL IVP (12:45)
[2024-12-20] MEDS: metoclopramide 5 mg/mL SDV 2 mL 10 MG IVP (12:49)
[2024-12-20 12:58] LABS: Basophils # 0.1 10^3/uL (0.0-0.1); Basophils % 0.8 %; Eosinophils # 0.1 10^3/uL (0.0-0.8); Eosinophils % 1.3 %; Lymphocytes # 2.7 10^3/uL (0.8-4.8); Lymphocytes % 29.7 %; Mean Corpuscular HGB Conc 31.8 g/dL (30-55); Mean Platelet Volume 9.4 fL (7.4-10.4); Monocytes # 0.5 10^3/uL (0.2-0.9); Monocytes % 5.8 %; Neutrophils # 5.64 10^3/uL (1.8-7.7); Nucleated Red Blood Cells % 0 %; Platelet Count 399 10^3/cmm (157-399); Red Blood Count 4.59 10^6/uL (3.85-5.65); Red Cell Distribution Width 16.2 % (12.1-15.1)
--- NOTE | 2024-12-20 13:01 | PC.NURSE ---
pt HR increased after medication administration, educated pt on medication side effects, cafeteria monitor placed on pt. ED physician at bedside. pt denies any further concerns at this time.
[2024-12-20] MEDS: sodium chloride 0.9% 1,000 ML 999 ML IV (13:12)
[2024-12-20 13:13] LABS: INR 0.96 (0.8-1.2)
[2024-12-20 13:14] LABS: Partial Thromboplastin Time 29.1 SECONDS (23.9-36.7)
[2024-12-20 13:16] LABS: Alanine Aminotransferase 12 U/L (0-33); Albumin Level 4.3 g/dL (3.5-5.2); Alkaline Phosphatase 121 U/L (35-105); Anion Gap 15.7 (5-19); Aspartate Amino Transferase 14 U/L (0-32); Blood Urea Nitrogen 11 mg/dL (6-20); Calcium 9.6 mg/dL (8.5-10.5); Carbon Dioxide 24 mmol/L (22-29); Chloride 102 mmol/L (98-107); Globulin 3.6 g/dL (1.3-4.6); Glucose 98 mg/dL (65-115); Osmolality Calculated 285 mOsm/kg (285-295); Potassium 3.7 mmol/L (3.5-5.1); Sodium 138 mmol/L (136-145); Total Bilirubin 0.6 mg/dL (0.15-1.2); Total Protein 7.9 g/dL (6.6-8.7)
[2024-12-20 13:33] VITALS: BP 140/89; PULSE 96; O2SAT 98
[2024-12-20 14:00] VITALS: BP 133/89; PULSE 96; O2SAT 99
== END 2024-12-20 14:01 | disposition home or self-care (01) ==
PROVIDERS: Emergency Provider Emergency Medicine; PCP Nurse Practitioner Family
DX: G43.909 Migraine, unspecified, not intractable, without status migrainosus (principal); R20.2 Paresthesia of skin
CPT/HCPCS: 36415; 36416; 70450; 80053; 82962; 85025; 85610; 85730; 93005; 96361; 96374; 96375; 99285; J1200; J1885; J2765; J7030